=== PATIENT | female | born 1990 | race Caucasian/White ===

== ENCOUNTER 2023-08-07 12:02 | Outpatient (CLI) | payer OTHER, SELFPAY ==
--- NOTE | ~2023-08-07 | XR_ITS ---
EXAMINATION: XR chest 2V 08/07/2023 12:35 INDICATION: Midsternal chest pain and shortness of breath PROCEDURE: 2 view chest COMPARISON: No prior studies for comparison. FINDINGS: The lungs are clear. The cardiomediastinal silhouette is within normal limits. There are no pleural effusions. There is no pneumothorax suspected. IMPRESSION: 1: NO ACUTE CARDIOPULMONARY DISEASE. Reviewed, dictated and finalized at location L.
[2023-08-07 12:24] LABS: Basophils Absolute Auto 0.04 K/mm3 (0.00-0.10); Basophils Percent Auto 0.7 % (0.0-1.0); Eosinophils Absolute Auto 0.25 K/mm3 (0.02-0.50); Eosinophils Percent Auto 4.4 % (1.0-6.0); Hematocrit 39.8 % (35.0-49.0); Hemoglobin 13.6 g/dL (12.0-15.0); Immature Granulocyte Absolute 0.01 K/mm3 (0.00-0.00); Immature Granulocyte Percent A 0.2 % (0.0-0.0); Lymphocytes Absolute Auto 1.72 K/mm3 (1.10-4.50); Lymphocytes Percent Auto 30.4 % (18.0-42.0); Mean Corpuscular HGB Conc 34.2 g/dL (32.0-36.0); Mean Corpuscular Hemoglobin 30.1 pg (27.0-31.0); Mean Corpuscular Volume 88.1 fL (78.0-102.0); Mean Platelet Volume 10.4 fl (9.2-11.8); Monocytes Absolute Auto 0.52 K/mm3 (0.10-0.90); Monocytes Percent Auto 9.2 % (2.0-11.0); Neutrophils Absolute Auto 3.1 K/mm3 (1.7-7.2); Neutrophils Percent Auto 55.1 % (50.0-70.0); Platelet Count Result 199 K/mm3 (150-420); Red Blood Count 4.52 M/mm3 (4.20-5.40); Red Cell Distribution Width 12.2 % (11.6-14.4); White Blood Count 5.7 K/mm3 (4.8-10.8)
[2023-08-07 12:39] LABS: D Dimer 0.19 mg/L (0.19-0.50)
[2023-08-07 12:50] LABS: Alanine Aminotransferase 19 U/L (14-59); Albumin Level 3.9 g/dL (3.4-5.0); Alkaline Phosphatase 54 U/L (46-116); Anion Gap 9 mmol/L (8-16); Aspartate Amino Transferase 14 U/L (15-37); Bilirubin,Total 0.6 mg/dL (0.00-1.00); Blood Urea Nitrogen 8 mg/dL (7-18); Calcium 9.1 mg/dL (8.5-10.1); Carbon Dioxide 27 mmol/L (21-32); Chloride 104 mmol/L (98-108); Creatine Kinase 96 U/L (26-192); Estimated Glomerular Filt Rate > 60; Glucose 89 mg/dL (70-99); Osmolality Calculated 287 mOsm/kg (285-295); Potassium 3.6 mmol/L (3.5-5.1); Sodium 140 mmol/L (136-145); Thyroid Stimulating Hormone 1.08 uIU/mL (0.36-3.74); Troponin I 4.2 ng/L (0.00-60.4)
[2023-08-07 12:54] LABS: CRP < 0.5 mg/dL (0.0-0.9)
[2023-08-07 13:12] LABS: Rheumatoid Factor Screen Negative (Negative)
[2023-08-10 13:35] LABS: Anti Nuclear Antibody Pattern Nuclear, Speckled
== END 2023-08-07 12:03 | disposition home or self-care (01) ==
LOC: CHSLAB 12:08
PROVIDERS: PCP Internal Medicine; Visit Provider Nurse Practitioner Family
DX: R06.02 Shortness of breath (principal); R07.9 Chest pain, unspecified; M79.606 Pain in leg, unspecified
CPT/HCPCS: 36415; 71046; 80053; 82550; 82553; 83735; 84439; 84443; 84484; 85025; 85380; 86038; 86039; 86140; 86430

== ENCOUNTER 2023-09-03 10:08 | Outpatient (CLI) | payer OTHER, SELFPAY ==
--- NOTE | 2023-09-03 10:20 | ECHO_ITS ---
Patient Info Name: Narcisa Olson Age: 32 years : 1990 Gender: Female Ht: 65 in Wt: 120 lbs BSA: 1.58 m2 HR: 72 bpm BP: 132 / 95 mmHg Heart Rhythm: Sinus Rhythm Technical Quality: Good Exam Date: 09/03/2023 11:21 AM Exam Location: Echo Lab Patient Status: Outpatient Admit Date: 09/03/2023 Staff Ordering Physician: Rosio, Tamiko Dave NP Cable Armorer Operator: Marry Turner RDCS Attending Provider: MilagrosTamiko NP Referring Physician: Rosio REED; Exam Type: CA echo doppler color flow Study Info Indications - Abn EKG, chest pain Complete two-dimensional, color flow and Doppler transthoracic echocardiogram is performed. Summary 1. Complete two-dimensional, color flow and Doppler transthoracic echocardiogram is performed. 2. Left ventricular chamber dimension is normal. 3. Left ventricular systolic function is normal, estimated at 60-65%. 4. The left ventricular diastolic function is normal. 5. E/e' 6 is not elevated. 6. There is trace tricuspid valve regurgitation. 7. No pulmonary hypertension, estimated pulmonary arterial systolic pressure is 10 mmHg. Left Ventricle E/e' 6 is not elevated. Left ventricular chamber dimension is normal. Left ventricular systolic function is normal, estimated at 60-65%. The left ventricular diastolic function is normal. Right Ventricle Right ventricular systolic function is normal and with normal TAPSE 3.0 cm. Right ventricular chamber dimension is normal. Left Atria Left atrial chamber dimension is normal. Right Atria Right atrial chamber dimension is normal. Aortic Valve The aortic valve is trileaflet. There is no aortic valve stenosis. There is no aortic valve regurgitation. Pulmonic Valve There is no pulmonic regurgitation. Mitral Valve There is no mitral valve stenosis. There is no mitral valve regurgitation. Tricuspid Valve There is trace tricuspid valve regurgitation. No pulmonary hypertension, estimated pulmonary arterial systolic pressure is 10 mmHg. Pericardium/Pleural There is no pericardial effusion. Inferior Vena Cava Normal inferior vena cava with >50% collapse upon inspiration consistent with normal right atrial pressure, 5 mmHg. Aorta The aortic root size at the sinus of Valsalva is normal. Left Ventricular Outflow Tract Name Value Normal LVOT 2D LVOT Diameter 1.7 cm LVOT Doppler LVOT Peak Velocity 95 cm/s LVOT Peak Gradient 4 mmHg LVOT Mean Gradient 2 mmHg LVOT VTI 19 cm LVOT VTI/AV VTI Ratio 0.8 LVOT Stroke Volume 45 ml Pulmonic Valve Name Value Normal RVOT Doppler RVOT Peak Gradient 1 mmHg PV Doppler PV Peak Velocity 88 cm/s PV Peak Gradient
[2023-09-03 11:16] LABS: Cholesterol 120 mg/dL (0-200); HDL Direct 73 mg/dL (40-60); LDL Cholesterol Calculated 39 mg/dL (<130); Triglycerides 39 mg/dL (0-150)
== END 2023-09-03 10:09 | disposition home or self-care (01) ==
PROVIDERS: PCP Internal Medicine; Visit Provider Nurse Practitioner Family
DX: Z00.00 Encounter for general adult medical examination without abnormal findings (principal); R94.31 Abnormal electrocardiogram [ECG] [EKG]; R07.9 Chest pain, unspecified
CPT/HCPCS: 36415; 80061; 93306

== ENCOUNTER 2023-09-13 00:50 | Emergency (ER) | payer OTHER, SELFPAY ==
--- NOTE | ~2023-09-13 | XR_ITS ---
Left foot Technique: AP, oblique, and lateral views were obtained. Clinical History: Great toe injury Findings: There is a minimally displaced fracture of the distal phalanx of the great toe, probably mi ldly comminuted. No intra-articular extension. Joint spaces are preserved without erosive or degenera tive change. Soft tissues are unremarkable. Impression: Minimally displaced, probable comminuted fracture of the distal phalanx of the great toe. Reviewed, dictated and finalized at location M. A ARTS PROFESSOR Impression: Minimally displaced, probable comminuted fracture of the distal phalanx of the great toe.
[2023-09-13 00:57] VITALS: BP 146/102; PULSE 100; RESP 20; TEMP 36.6; O2SAT 97
--- NOTE | 2023-09-13 01:00 | ED.LOWEXIN ---
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 -- left big toenail avulsion -- 2 cm laceration on the top of the big toe proximal to nail fold. -- profuse bleeding No other injuries noted. MD complaint: foot injury Onset (ago): hour(s) ( 1 hour ago) Injury: Left: foot Type of Injury: blunt Place: home Severity: severe Relieving factors: nothing Exacerbating factors: nothing Context: direct blow Other symptoms: none Related Data Allergies Allergy/AdvReac Type Severity Reaction Status Date / Time CONTROL PATCH Allergy Uncoded 02/03/12 15:10 Review of Systems Review of Systems: All systems reviewed & are unremarkable except as noted in HPI and below Constitutional: Constitutional: Reports as per HPI and Reports no additional constitutional complaints Eyes: Eyes: Reports as per HPI and Reports no additional eye complaints ENT: Reports system reviewed and no additional complaints, except as documented and Reports as per HPI Cardiovascular: Cardiovascular: Reports as per HPI and Reports no additional cardiovascular complaints Respiratory: Respiratory: Reports as per HPI and Reports no additional respiratory complaints Gastrointestinal: Gastrointestinal: Reports as per HPI and Reports no additional gastrointestinal complaints Genitourinary: Genitourinary: Reports no additional female genitourinary complaints and Reports as per HPI Musculoskeletal: Musculoskeletal: Reports no additional musculoskeletal complaints and Reports as per HPI Integumentary/Breasts: Comments: big toe toenail avulsion which was removed 2 cm laceration on the top of the big toe proximal to the nail fold Neurologic: Reports system reviewed and no additional complaints, except as documented Psychiatric: Psychiatric: Reports no additional psychiatric complaints Endocrine: Endocrine: Reports no additional endocrine complaints Hematologic/Lymphatic: Hematologic/Lymphatic: Reports no additional hematologic/lymphatic complaints Allergic/Immunologic: Allergic/Immunologic: Reports no additional allergic/immunologic complaints Exam Const: Orientation/consciousness: patient oriented x3 Limitations: no limitations HENMT: Head: normal to inspection Ears: external ears normal Face/Nose/Sinus: Normal external nose present Face and sinus: normal facial exam Mouth: Yes Normal oral and palatal mucosa present Throat: posterior oropharynx normal Eyes: Conjunctivae: conjunctivae normal Pupils: Equal, round and reactive pupils present EOM: EOMs intact bilaterally Direct Ophthalmoscopy: no photophobia Neck: Neck: normal visual inspection, no lymphadenopathy and no meningeal signs Chest: Chest palpation & inspection: normal inspection of the chest Resp: Effort & Inspection: normal respiratory effort Auscultation: clear to auscultation bilaterally Cardio: Rate: regular rate Rhythm: regular rhythm GI: GI Palp: Yes Soft to palpation Auscultation: normal bowel sounds : General: Yes no CVA tenderness Back/Spine/Pelvis: Back: no CVA tenderness Skin: Other: Left big toe laceration proximal to the nail fold measuring 2 cm. Deep laceration avulsion of right big toe toenail profuse bleeding from the laceration site distal neurovascular bundle is intact. Neuro: General: patient oriented x3, moves all extremities, no meningeal signs, no focal motor deficits and CN's II-XI intact bilaterally Cranial nerves: Yes Nystagmus not present Speech: normal speech Extrem: General: normal to inspection Other: Left big toe laceration Psych: Mental Status: mental status grossly norm
[2023-09-13] MEDS: IBUPROFEN 600 MG TABLET PO (02:45)
[2023-09-13] MEDS: cefTRIAXone 1 GM VIAL IM (02:46)
[2023-09-13 03:26] VITALS: PULSE 90; RESP 18; O2SAT 98
[2023-09-13 03:32] VITALS: BP 138/85
== END 2023-09-13 03:40 | disposition home or self-care (01) ==
PROVIDERS: Emergency Provider Internal Medicine Critical Care Medicine; PCP Internal Medicine
DX: S92.425B Nondisplaced fracture of distal phalanx of left great toe, initial encounter for open fracture (principal); W22.09XA Striking against other stationary object, initial encounter; Y92.009 Unspecified place in unspecified non-institutional (private) residence as the place of occurrence of the external cause
CPT/HCPCS: 12001; 73630; 96372; 99283; A9270; J0696

== ENCOUNTER 2023-10-01 08:31 | Outpatient (CLI) | payer OTHER, SELFPAY ==
--- NOTE | ~2023-10-01 | XR_ITS ---
XR foot LT min 3V 10/01/2023 08:52 Indication: Follow-up left great toe fracture Procedure: 4 views left foot Comparison: 09/13/2023 Findings: Stable alignment of comminuted extra-articular fracture left first distal phalanx. Mild sof t tissue swelling. No other fracture. Impression: 1: Stable alignment of comminuted extra-articular fracture left first distal phalanx. Reviewed, dictated and finalized at location B. ER MECHANIC Impression: 1: Stable alignment of comminuted extra-articular fracture left first distal ph alanx.
== END 2023-10-01 08:32 | disposition home or self-care (01) ==
LOC: CHSIMG 08:33
PROVIDERS: PCP Internal Medicine; Visit Provider Orthopaedic Surgery
DX: M79.672 Pain in left foot (principal); S92.812A Other fracture of left foot, initial encounter for closed fracture
CPT/HCPCS: 73630

== ENCOUNTER 2023-11-12 08:46 | Outpatient (CLI) | payer OTHER, SELFPAY ==
--- NOTE | ~2023-11-12 | XR_ITS ---
Left foot Technique: AP, oblique, and lateral views were obtained. Clinical History: Pain COMPARISON: 10/01/2023 Findings: There has been partial interval healing of fracture the distal phalanx of the great toe sin ce prior exam. Remaining osseous structures are unremarkable. Soft tissues are unremarkable. Impression: Partial interval healing of fracture the distal phalanx of the great toe since prior exam. Reviewed, dictated and finalized at location . HER FEEDER Impression: Partial interval healing of fracture the distal phalanx of the great toe since prior exam.
== END 2023-11-12 08:47 | disposition home or self-care (01) ==
LOC: CHSIMG 08:49
PROVIDERS: PCP Internal Medicine; Visit Provider Orthopaedic Surgery
DX: S92.812D Other fracture of left foot, subsequent encounter for fracture with routine healing (principal); M79.672 Pain in left foot
CPT/HCPCS: 73630

== ENCOUNTER 2024-01-01 09:57 | Outpatient (CLI) | payer OTHER, SELFPAY ==
--- NOTE | ~2024-01-01 | XR_ITS ---
EXAMINATION: XR chest 2V DATE: 01/01/2024 10:25 INDICATION: Upper respiratory infection, shortness of breath TECHNIQUE: PA and lateral views of the chest are obtained. COMPARISON: 08/07/2023 FINDINGS: The lungs are free of acute opacities. No pleural effusion or pneumothorax. The cardiomedia stinal silhouette is normal. The visualized bones and soft tissues are unremarkable. IMPRESSION: 1. No acute cardiopulmonary abnormality. Reviewed, dictated and finalized at location L. ER
[2024-01-01 10:16] LABS: Basophils Absolute Auto 0.02 K/mm3 (0.00-0.10); Basophils Percent Auto 0.5 % (0.0-1.0); Eosinophils Absolute Auto 0.06 K/mm3 (0.02-0.50); Eosinophils Percent Auto 1.4 % (1.0-6.0); Hematocrit 43.4 % (35.0-49.0); Hemoglobin 14.5 g/dL (12.0-15.0); Immature Granulocyte Absolute 0.01 K/mm3 (0.00-0.00); Immature Granulocyte Percent A 0.2 % (0.0-0.0); Lymphocytes Absolute Auto 0.76 K/mm3 (1.10-4.50); Lymphocytes Percent Auto 18.3 % (18.0-42.0); Mean Corpuscular HGB Conc 33.4 g/dL (32.0-36.0); Mean Corpuscular Hemoglobin 29.1 pg (27.0-31.0); Mean Platelet Volume 10.3 fl (9.2-11.8); Monocytes Absolute Auto 0.47 K/mm3 (0.10-0.90); Monocytes Percent Auto 11.3 % (2.0-11.0); Neutrophils Absolute Auto 2.8 K/mm3 (1.7-7.2); Neutrophils Percent Auto 68.3 % (50.0-70.0); Platelet Count Result 150 K/mm3 (150-420); Red Blood Count 4.99 M/mm3 (4.20-5.40); Red Cell Distribution Width 12.6 % (11.6-14.4); White Blood Count 4.2 K/mm3 (4.8-10.8)
[2024-01-01 10:46] LABS: Strep Group A RT-PCR NOT DETECTED (Negative)
[2024-01-01 10:56] LABS: Influenza A QL RT-PCR Negative (Negative); Influenza B QL RT-PCR Negative (Negative); RSV RNA, RT-PCR Negative (Negative); SARS-CoV-2 RNA PCR Negative (Negative)
[2024-01-01 11:28] LABS: Alanine Aminotransferase 24 U/L (14-59); Alkaline Phosphatase 49 U/L (46-116); Anion Gap 11 mmol/L (8-16); Aspartate Amino Transferase 18 U/L (15-37); Bilirubin,Total 0.8 mg/dL (0.00-1.00); Blood Urea Nitrogen 4 mg/dL (7-18); Calcium 8.5 mg/dL (8.5-10.1); Carbon Dioxide 27 mmol/L (21-32); Chloride 101 mmol/L (98-108); Estimated Glomerular Filt Rate > 60; Glucose 86 mg/dL (70-99); Osmolality Calculated 283 mOsm/kg (285-295); Sodium 139 mmol/L (136-145)
== END 2024-01-01 09:58 | disposition home or self-care (01) ==
LOC: CHSLAB 09:59
PROVIDERS: PCP Internal Medicine; Visit Provider Internal Medicine
DX: J06.9 Acute upper respiratory infection, unspecified (principal); R06.02 Shortness of breath
CPT/HCPCS: 36415; 71046; 80053; 85025; 87637; 87651

== ENCOUNTER 2024-10-20 15:00 | Outpatient (CLI) | payer OTHER, SELFPAY ==
--- NOTE | ~2024-10-20 | XR_ITS ---
EXAMINATION: XR chest 2V Exam Date/Time: 10/20/2024 15:18 MULE OPERATOR HISTORY: URI Comparison: 01/01/2024. RESULT: Lines, tubes, and devices: None. Lungs and pleura: Clear. Cardiomediastinal silhouette: Stable. Other: No acute osseous or upper abdominal finding. IMPRESSION: No acute cardiopulmonary process. Reviewed, dictated and finalized at location K. OPERATOR
[2024-10-20 15:21] LABS: Basophils Absolute Auto 0.05 K/mm3 (0.00-0.10); Basophils Percent Auto 0.9 % (0.0-1.0); Eosinophils Absolute Auto 0.26 K/mm3 (0.02-0.50); Eosinophils Percent Auto 4.7 % (1.0-6.0); Hematocrit 38.7 % (35.0-49.0); Hemoglobin 13.5 g/dL (12.0-15.0); Immature Granulocyte Absolute 0.02 K/mm3 (0.00-0.00); Immature Granulocyte Percent A 0.4 % (0.0-0.0); Lymphocytes Absolute Auto 1.79 K/mm3 (1.10-4.50); Lymphocytes Percent Auto 32.1 % (18.0-42.0); Mean Corpuscular HGB Conc 34.9 g/dL (32-36); Mean Corpuscular Hemoglobin 29.6 pg (27.0-31.0); Mean Corpuscular Volume 84.9 fL (78.0-102.0); Mean Platelet Volume 9.8 fl (9.2-11.8); Monocytes Absolute Auto 0.47 K/mm3 (0.10-0.90); Monocytes Percent Auto 8.4 % (2.0-11.0); Neutrophils Absolute Auto 2.99 K/mm3 (1.70-7.20); Neutrophils Percent Auto 53.5 % (50.0-70.0); Platelet Count Result 203 K/mm3 (150-420); Red Blood Count 4.56 M/mm3 (4.20-5.40); Red Cell Distribution Width 11.9 % (11.6-14.4); White Blood Count 5.6 K/mm3 (4.8-10.8)
[2024-10-20 15:52] LABS: Alanine Aminotransferase 16 U/L (14-59); Albumin Level 3.5 g/dL (3.4-5.0); Alkaline Phosphatase 53 U/L (46-116); Anion Gap 9 mmol/L (4-12); Aspartate Amino Transferase 15 U/L (15-37); Bilirubin,Total 0.6 mg/dL (0.00-1.00); Blood Urea Nitrogen 7 mg/dL (7-18); Calcium 8.9 mg/dL (8.5-10.1); Carbon Dioxide 30 mmol/L (21-32); Chloride 100 mmol/L (98-108); Estimated Glomerular Filt Rate > 60; Glucose 89 mg/dL (70-99); Osmolality Calculated 285 mOsm/kg (285-295); Potassium 4.1 mmol/L (3.5-5.1); Sodium 139 mmol/L (136-145); Total Protein 6.9 g/dL (6.4-8.2)
== END 2024-10-20 15:01 | disposition home or self-care (01) ==
PROVIDERS: PCP Internal Medicine; Visit Provider Internal Medicine
DX: J06.9 Acute upper respiratory infection, unspecified (principal)
CPT/HCPCS: 36415; 71046; 80053; 85025

== ENCOUNTER 2025-06-23 11:42 | Outpatient (CLI) | payer OTHER, SELFPAY ==
--- NOTE | ~2025-06-23 | XR_ITS ---
EXAMINATION: XR ankle RT min 3V, 06/23/2025 11:50 CDT HISTORY: Right ankle injury COMPARISON: No comparisons available. Findings: No acute fracture or malalignment. No significant degenerative changes. Soft tissues unremarkable. Impression: No acute fracture or malalignment. Reviewed, dictated and finalized at location A. Impression: No acute fracture or malalignment.
--- OUTSIDE RECORDS SUMMARY | 2025-06-23 11:57 | XMS_ITS | Encounter Summary ---
Author Organization [facility] Address [address] [place] [address] Care Team Providers Care Project Scheduler Name Role Phone Milli Johnson DO Primary Care Provider [phone] Encounter Details Date Type Department Care Team (Late st Contact Info) Description 05/13/2007 Orders Only [facility] Family Medicine [place] [address] [facility] [address] [place] [address] [place] [address] [place] [address] Social History Tobacco Use Types Packs/Day Years Used Date Smoking Tobacco: Never Assessed Comments Unknown Sex and Gender Information Value Date Recorded Sex Assigned at Not on file 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 CHIEF COMPLAINT: discuss control.mercy HISTORY: Painful periods, worse past several months, usually last 7 days, occur q month, not helpedwith Midol or Motrin, hurts to even get out of bed, mom with h/o painful periods as a teenager. Denies prior or contemplated sexual activity. FDLMP 05/08/07. 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 PHYSICAL EXAM: CONSTITUTIONAL: GENERAL APPEARANCE: Healthy appearing, alert patient, normally nourished, developmentally normal and in no acute distress. MUSCULOSKELETAL EXAM: SPINE/RIBS/PELVIS: No kyphosis, lordosis, full range of motion. Normal stability, strength and tone. ASSESSMENT/PLAN: 626.2-MENORRHAGIA/MENOMETORRHAGIA ASSESSMENT: Also primary dysmenorrhea. Discussed use of OCPs as therapy, in addition to prn NSAIDs. MEDICATIONS: ORTHO TRI-CYCLEN LO ORAL TABLET 0.025 MG PACKS, 1 tab po qd, 1 Dispensed, 12 Fills, status: NEW PRESCRIPTION, 05/13/2007. PATIENT EDUCATION: Risks, benefits, and possible side effects of medication(s) were reviewed with the patient. 724.2-LOW BACK PAIN ASSESSMENT: Discussed low back strengthening exercises for HEP. If fails to improve in 4 weeks, sheor Mom will call for PT referral. RETURN VISIT: Instructed to call if not improving. Electronically Signed by: Milli Johnson MD on Tuesday, May 15, 2007 documented in this encounter Plan of Treatment Not on file documented as of this encounter Visit Diagnoses Not on filedocumented in this encounter Care Teams Project Scheduler Relationship Specialty [place] [address] [facility] [address] [place] [id number] PCP - General 07/12/06 documented as of this encounter
--- OUTSIDE RECORDS SUMMARY | 2025-06-23 11:57 | XMS_ITS | Encounter Summary ---
Author Organization [facility] Address [address] [place] [address] Care Team Providers Care Manager Brand Name Role Phone Milli Johnson DO Primary Care Provider [phone] Encounter Details Date Type Department Care Team (Late st Contact Info) Description 07/24/2006 Outpatient Historical [facility] Family Medicine [place] [address] [place] [address] [place] [address] [place] [address] Social History Tobacco Use Types Packs/Day Years Used Date Smoking Tobacco: Never Assessed Comments Unknown Sex and Gender Information Value Date Recorded Sex Assigned at Not on file Legal Sex Female 2:[address] Gender Identity Not on file Sexual Orientation Not on file documented as of this encounter Last Filed Vital Signs Vital Sign Reading Time Taken Comments Blood Pressure - - Pulse - - Temperature 37.1 C (98.7 F) 07/24/2006 10:00 AM CDT Respiratory Rate - - Oxygen Saturation - - Inhaled Oxygen Concentration - - Weight 54.9 kg (121 lb) 07/24/2006 10:00 AM CDT Height - - Body Mass Index - - documented in this encounter Plan of Treatment Not on file documented as of this encounter Visit Diagnoses Not on filedocumented in this encounter Care Teams Manager Brand Relationship Specialty Start Date End Date M[place] [id number] [place] [address] [address] [place] [phone] PCP - General 07/12/06 documented as of this encounter
--- OUTSIDE RECORDS SUMMARY | 2025-06-23 11:57 | XMS_ITS | Clinical Summary ---
Author Organization [facility] Address [facility] [place] [address] Care Team Providers Care Signal Apprentice Name Role Phone None, Provider MD Primary Care Provider Unavaila ble Allergies Active Allergy Reactions Criticality Noted Date Comments Tape Rash Low 08/30/2021 Medications folic acid 1 MG tablet Take 3 mg by mouth daily. Active Vit-Fe Fumarate-FA (WESTAB PLUS) 27-1 MG Tab Active Social History Tobacco Use Types Packs/Day Years Used Date Smoking Tobacco: Never Smokeless Tobacco: Never Alcohol Use Standard Drinks/Week Comments Never 0 (1 standard drink = 0.6 oz pur e alcohol) Estimated Date of Delivery Comme nts Yes 02/19/2022 Sex and Gender Information Value Date Recorded Sex Assigned at Not on file Legal Sex Female 12:26 PM CDT Gender Identity Not on file Sexual Orientation Not on file Last Filed Vital Signs Vital Sign Reading Time Taken Comments Blood Pressure 129/83 08/30/2021 12:47 PM CDT Pulse 105 08/30/2021 12:47 PM CDT Temperature 36.9 C (98.5 F) 08/30/2021 12:47 PM CDT Respiratory Rate 18 08/30/2021 12:47 PM CDT Oxygen Saturation 100% 08/30/2021 12:47 PM CDT Inhaled Oxygen Concentration - - Weight 63.5 kg (140 lb) 08/30/2021 12:47 PM CDT Height 165.1 cm (5' 5) 08/30/2021 12:47 PM CDT Body Mass Index 23.3 08/30/2021 12:47 PM CDT Plan of Treatment Health Maintenance Due Date Last Done Comments Cervical Cancer Screening Pa p Smear (Age 30 to 64) Every 3 Years 1991 Annual Physical 1994 Hepatitis C 2009 DTaP, Tdap and Td Vaccines ( 1 - Tdap) 2010 Hepatitis B Vaccines (1 of 3 - 19+ 3-dose series) 2010 HPV Vaccines (1 - 3-dose SCD M series) 2018 Cervical Cancer Screening Pa p with HPV Testing (Age 30 to 64) Every 5 Years 2021 Cervical Cancer Screening with HPV 2021 COVID-19 Vaccine (1 - 2023-2 5 season) 2024 RSV Immunization or 60+ Years (1 - 1-dose 75+ series) 2066 Meningococcal B Vaccine Aged Out No l onger eligible based on patient's age to complete this topic Meningococcal Vaccine Aged Out No devendra cr eligible based on patient's age to complete this topic Pneumococcal Vaccine: Pediat rics (0 to 5 Years) and At-Risk Patients (6 to 49 Years) Aged Out No longer eligible b ased on patient's age to complete this topic RSV Immunizations Under 20 Months Aged Out No longer eligible based on patient's age to complete this topic Insurance [employer] Care Teams Signal Apprentice Relationship Specialty Start Date End Date None, Provider, PCP - General 08/30/21
--- OUTSIDE RECORDS SUMMARY | 2025-06-23 11:57 | XMS_ITS | Encounter Summary ---
Author Organization [facility] Address [address] [place] [address] Care Team Providers Care Motion Picture Actor Name Role Phone Milli Johnson DO Primary Care Provider [phone] Encounter Details Date Type Department Care Team (Late st Contact Info) Description 05/23/2007 Outpatient Historical [facility] Family Medicine [place] [address] [address] [facility] [address] [place] [address] Mariah Douglas MD NO ADDRESS ON FILE Social History Tobacco Use Types Packs/Day Years Used Date Smoking Tobacco: Never Assessed Comments Unknown Sex and Gender Information Value Date Recorded Sex Assigned at Not on file 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 Gender Identity Not on file Sexual Orientation Not on file documented as of this encounter Plan of Treatment Not on file documented as of this encounter Procedures Procedure Name Priority Date/Time Associated Diagnosis Comments CHG MENINGOCOCCAL CONJUG VACCINE IM VFC 05/23/2007 12:00 AM CDT CHG HEPATITIS A VACCINE PED ADOL IM 2 DOSE VFC 05/23/2007 12:00 AM CDT documented in this encounter Visit Diagnoses Not on filedocumented in this encounter Care Teams Motion Picture Actor Relationship Specialty [place] [address] [address] [facility] [address] [place] [address] PCP - General 07/12/06 documented as of this encounter
--- OUTSIDE RECORDS SUMMARY | 2025-06-23 11:57 | XMS_ITS | Encounter Summary ---
Author Organization [facility] Address [address] [place] [address] Care Team Providers Care Sizing End Bander Name Role Phone Milli Johnson DO Primary Care Provider [phone] Encounter Details Date Type Department Care Team (Latest Contact Info) Description 10/16/2008 Outpatient [place] [address] [place] [address] Abdominal Pain, Generalized Social History Tobacco Use Types Packs/Day Years Used Date Smoking Tobacco: Never Alcohol Use Standard Drinks/Week Comments No 0 (1 standard drink = 0.6 oz pur e alcohol) Comments No Sex and Gender Information Value Date Recorded Sex Assigned at Not on file 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
--- OUTSIDE RECORDS SUMMARY | 2025-06-23 11:57 | XMS_ITS | Encounter Summary ---
Author Organization [facility] Address 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
--- OUTSIDE RECORDS SUMMARY | 2025-06-23 11:57 | XMS_ITS | Encounter Summary ---
Author Organization [facility] Address [address] [place] [address] Care Team Providers Care Medicine And Health Service Manager Name Role Phone Milli Johnson DO Primary Care Provider [phone] Encounter Details Date Type Department Care Team (Late st Contact Info) Description 10/23/2007 Outpatient Historical [facility] Family Medicine [place] [address] [place] [address] [place] [address] [place] [address] Social History Tobacco Use Types Packs/Day Years Used Date Smoking Tobacco: Never Assessed Comments Unknown Sex and Gender Information Value Date Recorded Sex Assigned at Not on file 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
--- OUTSIDE RECORDS SUMMARY | 2025-06-23 11:57 | XMS_ITS | Encounter Summary ---
Author Organization [facility] Address 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
--- OUTSIDE RECORDS SUMMARY | 2025-06-23 11:57 | XMS_ITS | Encounter Summary ---
Author Organization [employer] Address 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
--- OUTSIDE RECORDS SUMMARY | 2025-06-23 11:57 | XMS_ITS | Encounter Summary ---
[facility] Organization [facility] Address 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
--- OUTSIDE RECORDS SUMMARY | 2025-06-23 11:57 | XMS_ITS | Encounter Summary ---
Author Organization [facility] Address 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
--- OUTSIDE RECORDS SUMMARY | 2025-06-23 11:57 | XMS_ITS | Encounter Summary ---
Author Organization [facility] Address [address] [place] [address] Care Team Providers Care Philanthropy Officer Name Role Phone Milli Johnson DO Primary Care Provider [phone] Encounter Details Date Type Department Care Team (Late st Contact Info) Description 10/23/2007 Outpatient Historical [facility] Family Medicine [place] [address] [place] [address] [place] [address] [place] [address] Social History Tobacco Use Types Packs/Day Years Used Date Smoking Tobacco: Never Assessed Comments Unknown Sex and Gender Information Value Date Recorded Sex Assigned at Not on file 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
--- OUTSIDE RECORDS SUMMARY | 2025-06-23 11:57 | XMS_ITS | Encounter Summary ---
Author Organization [facility] Address [address] [place] [address] Care Team Providers Care Machine Records Units Supervisor Name Role Phone Milli Johnson DO Primary Care Provider [phone] Encounter Details Date Type Department Care Team (Late st Contact Info) Description 01/31/2007 Outpatient Historical [facility] Family Medicine [place] [address] [place] [address] [place] [address] [place] [address] Social History Tobacco Use Types Packs/Day Years Used Date Smoking Tobacco: Never Assessed Comments Unknown Sex and Gender Information Value Date Recorded Sex Assigned at Not on file 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 Gender Identity Not on file Sexual Orientation Not on file documented as of this encounter Last Filed Vital Signs Vital Sign Reading Time Taken Comments Blood Pressure 112/70 01/31/2007 4:00 PM CDT Pulse 70 01/31/2007 4:00 PM CDT Temperature 36.7 C (98.1 F) 01/31/2007 4:00 PM CDT Respiratory Rate - - Oxygen Saturation - - Inhaled Oxygen Concentration - - Weight 5.443 kg (12 lb) 01/31/2007 4:00 PM CDT Height - - Body Mass Index - - documented in this encounter Plan of Treatment Not on file documented as of this encounter Visit Diagnoses Not on filedocumented in this encounter Care Teams Machine Records Units Supervisor Relationship Specialty [place] [address] [facility] [address] [place] [address] PCP - General 07/12/06 documented as of this encounter
--- OUTSIDE RECORDS SUMMARY | 2025-06-23 11:57 | XMS_ITS | Encounter Summary ---
Author Organization [employer] Address 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
--- OUTSIDE RECORDS SUMMARY | 2025-06-23 11:57 | XMS_ITS | Clinical Summary ---
Author Organization [employer] Address [address] [place] [address] Care Team Providers Care Band Singer Name Role Phone Milli Johnson DO Primary Care Provider [phone] Allergies Active Allergy Reactions Criticality Noted Date Comments Adhesive Rash Medium 09/14/2013 control patch of unknown name. Unclassified Drug Rash Low 09/06/2015 Control patch Medications L.acid/B.bifidum /B.animal/FOS (PROBIOTIC COMPLEX ORAL) Take by mouth. A ctive vit-iron fumarate-fa (JERO ) 28 mg iron- 800 mcg Tablet Take 1 Tablet by mouth daily. Active polymyxin B sulf-trimethopri m (POLYTRIM) 10,000 unit- 1 mg/mL solution Administer 1 Drop in both eyes every 4 hours. 10 mL 3 Active naproxen (NAPROSYN) 500 mg tabletIndication s:Other migraine without status migrainosus, intractable TAKE 1 TABLET BY MOUTH TWICE A DAY WITH MEALS 60 Tablet 3 Active cyclobenzaprine (FLEXERIL) 5 mg Tablet Take 1 Tablet (5 mg) by mouth 3 times daily as needed for Spasm. 12 Tablet 3 Active Active Problems Problem Noted Date Diagnosed Date History of COVID-19 01/31/2022 Intrauterine growth restrict ion affecting antepartum care of mother in third trimester, not applicable or unspecified fetus 01/31/2022 Encounter for induction of labor 01/31/2022 Back pain affecting in third trimester 12/11/2021 2019 novel coronavirus disease (COVID-19) 2020 Onychomycosis 06/07/2018 Tobacco abuse 06/05/2018 Generalized anxiety disorder 09/03/2012 Constipation 03/04/2012 Migraine 12/15/2011 Excessive or frequent menstruation 01/31/2007 Resolved Problems Problem Noted Date Diagnosed Date Resolved Date 04/13/16 04/12/2016 05/25/2016 Cramping -> d/c home 01/22/2016 016 Nausea and vomiting during p regnancy prior to 22 weeks gestation 09/07/2015 05/25/2016 Pelvic pain in female 06/26/20142015 Rash and other nonspecific skin eruption 12/04/2007 09/17/2009 Other specified noninflammat ory disorder of vagina 10/23/2007 01/08/2009 Routine infant or child health check 05/23/2007 12/15/2011 Need for other specified pro phylactic vaccination against single bacterial disease 05/23/2007 01/08/2009 Other specified disease of h air and hair follicles 01/31/2007 01/08/2009 Candidiasis of vulva and vagina 01/31/2007 01/08/2009 Allergic urticaria 07/24/2006 0 Lumbago 07/12/2006 09/17/2009 Major depressive disorder, s lucy episode, unspecified 07/12/2006 12/15/2011 Need for prophylactic vaccin ation and inoculation against viral hepatitis 07/12/200608/30 Nausea vomiting and diarrhea 05/25/2016 Encounters Date Type Department Care Team Description 06/16/2025 External Device Data STL ABSTRACTION Provider, Abstract 06/03/2025 External Device Data [facility] ABSTRACTION Provider, Abstract 06/02/2025 External Device Data ST[facility] ABSTRACTION Provider, Abstract 04/28/2025 External Device Data ST[facility] ABSTRACTION Provider, Abstract from Last 3 Months Immunizations Immunization Administration Dates Next Due (ADACEL/BOOSTRIX)(10 YR UP) TDAP VACCINE, 0.5ML, IM 02/07/2016,04/23/2008 (HAVRIX/VAQTA)(12 MO-18 YRS) HEPATITIS A VACCINE 0.5 ML PED/ADOL 2 DOSE, IM 05/23/2007,07/12/2006 (INFANRIX)(6 WKS-6 YRS) DIPT HERIA, TETANUS TOXOIDS, AND ACCELLULAR PERTUSSIS VACCINE (DTAP), 0.5 ML IM 05/17/1996,07/08/1993,07/10/1992,04/10,01/20/1992 (IPOL)(6 WKS AND UP) POLIOVI ELIZABETH VACCINE, INACTIVATED (IPV), 3 DOSE, SUBCUT OR IM 05/17/1996,07/08/1993,04/10/1992,01/19 (M-M-R II/PRIORIX)(12 MO UP) MEASLES, MUMPS AND RUBELLA VIRUS VACCINE, 0.5 ML IM/SUBCUT 05/17/1996,02/26/1993 (VARIVAX)(12 MOS UP)VARICELL A VIRUS VACCINE (PF) 0.5 ML, SUB CUT 05/16/2002 HPV Vaccine 3 Dose IM VFC 04/08/2010,11/15/2009, 09/16/2009 Hepatitis B Vaccine 11/10/2000,05/12/1997,1995 INFLUENZA VACCINE QUADRIVALE NT 6 MOS UP PF IM 10/03/2019 Meningococcal A Conjugate Vaccine IM 05/23/2007 Family History Medical History Relation Name Comments Healthy Brother 1 Healthy Brother 2 Healthy Father Healthy Mother Breast Cancer Other Ovarian Cancer Other Heart Disease Paternal Grandmother Healthy Sister 1 Healthy Sister 2 Relation Name Status Comments Brother 1 Alive Brother 2 Alive Father Alive Mother Alive Other Paternal Grandmother Sister 1 Alive Sister 2 Alive Social History Tobacco Use Types Packs/Day Years Used Date Smoking Tobacco: Former Cigarettes Q uit: 07/13/2015 Smokeless Tobacco: Never Alcohol Use Standard Drinks/Week Comments Not Currently 0 (1 standard drink = 0.6 oz pur e alcohol) Comments No Sex and Gender Information Value Date Recorded Sex Assigned at Not on file 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 Gender Identity Not on file Sexual Orientation Not on file Last Filed Vital Signs Vital Sign Reading Time Taken Comments Blood Pressure 118/84 11/10/2022 10:02 AM FIRE EXTINGUISHER INSPECTOR Pulse 101 11/10/2022 10:02 AM FIRE EXTINGUISHER INSPECTOR Temperature 36.6 C (97.9 F) 11/10/2022 10:02 AM FIRE EXTINGUISHER INSPECTOR Respiratory Rate 18 02/02/2022 7:59 AM CDT Oxygen Saturation 99% 11/10/2022 10: 02 AM FIRE EXTINGUISHER INSPECTOR Inhaled Oxygen Concentration - - Weight 59.3 kg (130 lb 12.8 oz) 023 10:02 AM FIRE EXTINGUISHER INSPECTOR Height 165.1 cm (5' 5) 11/10/2022 10:0 2 AM FIRE EXTINGUISHER INSPECTOR Body Mass Index 21.77 11/10/2022 10:02 AM FIRE EXTINGUISHER INSPECTOR Plan of Treatment Health Maintenance Due Date Last Done Comments HPV/Cotest (21-29) 06/08/2019 06/08/2014, 09/16/2009 CERVICAL CANCER SCREENING 2021 HPV/Cotest (30-65) 2021 06/08/2014, 09/16/2009 PAP SMEAR 2021 06/08/2014, 09/16/2009 Preventative Visit- Commercial 10/29/2024 1 12/11/2018, 06/05/2018, 02/14/2016, Additional history exists INFLUENZA VACCINE (#1) 2025 10/03/2019 DTAP/TDAP/TD VACCINES (8 - T d or Tdap) 02/06/2026 02/07/2016, 04/23/2008, 05/17/1996, Additional history exists HEPATITIS B VACCINES Completed 11/10/2000, 05/12/1997, 05/17/1996 HPV VACCINES Completed 04/08/2010, 10/29, 09/16/2009 Procedures Procedure Name Priority Date/Time Associated Diagnosis Comments CERV/VAG CYTOPATH, THIN PREP IMAGR RFLX HPV Routine 06/08/2014 11:02 PM CDT Screening for cervical cancer from Last 3 Months or Most Recently Relevant to Health Maintenance Results * CERV/VAG CYTOPATH, THIN PREP IMAGR RFLX HPV (06/08/2014 11:02 PM CDT) LAST MENSTRUAL PERIOD 06/05/14 [facility] PAP INTERP Negative for intraepithelial lesion or malignancy. [facility] [employer] [facility] Comment: Performed by [employer], [address] [place] [address] Registered Respiratory Therapist Pap Comment This Pap test has been evaluated with computer assisted technology. [facility] [employer] [facility] ADEQUACY: Satisfactory for evaluation. Endocervical/trans formation zone component present. [facility] [employer] [facility] CLINICAL INFORMATION Information not provided [facility] LABORATORY SERVICES - [facility] SOURCE Information not provided [facility] LABORATORY SERVICES - [facility] PREV PAP: INFORMATION NOT PROVIDED [facility] LABORATORY SERVICES - [facility] CYTOTECHNOLOGI ST: [place], [place](ASCP) [facility] LABORATORY SERVICES - [facility] PREV BX: INFORMATION NOT PROVIDED [facility]ORATORY SERVICES - [facility] Endocervical 06/08/2014 11:0 2 PM CDT 06/08/2014 11:21 PM CDT Comment:ENDOCERVICAL Bertrand Fernandez MD PATHOLOGY/CYTOLOGY ORDERABLE S Final Result [facility] LABORATORY SERVICES [facility] CLIA# [id number] [address] [place] [address] from Last 3 Months or Most Recently Relevant to Health Maintenance Insurance [facility] [id number] OPEN CHOICE PPO RX [employer] PLANS (INTERNAL) [facility] Internal Plans Advance Directives For more information, please contact: [phone] * Full Code (Latest Code Status on File) Date Activated Date Inactivated Comments 02/01/2022 10:09 AM 02/02/2022 1:27 PM * Full Code Date Activated Date Inactivated Comments 01/30/2022 10:42 AM 02/01/2022 10:09 AM * Full Code Date Activated Date Inactivated Comments 09/01/2021 8:52 AM 09/01/2021 3:40 PM * Full Code Date Activated Date Inactivated Comments 04/13/2016 11:32 AM 04/15/2016 4:46 PM * Full Code Date Activated Date Inactivated Comments 04/12/2016 7:14 AM 04/13/2016 11:32 AM Care Teams Band Singer Relationship Specialty [place] [address] [facility] [address] [place] [address] PCP - General 07/12/06
--- OUTSIDE RECORDS SUMMARY | 2025-06-23 11:57 | XMS_ITS | Clinical Summary ---
Author Organization [facility] [address] [place] [address] Care Team Providers Care Log Inspector Name Role Phone Milli Johnson DO Primary Care Provider [phone] Lata Nelson DO Unavailable [phone] Allergies Active Allergy Reactions Criticality Noted Date Comments Adhesive Rash Medium 09/14/2013 control patch of unknown name. Medications No known medications Active Problems Problem Noted Date Diagnosed Date Family history of spina bifida 08/23/2021 Encounters Date Type Department Care Team Description 04/06/2025 3:15 PM CDT Office Visit [facility] [address] [place] [address] Lata Nelson DO Routine gynecological examination (Primary Dx); Hormone imbalance; Vitamin D deficiency from Last 3 Months Surgical History Surgery Date Site/Laterality Comments NO PAST SURGERIES Medical History Medical History Date Comments History of abnormal cervical Pap smear 09/2015 ASCUS +HrHPV neg Family History Medical History Relation Name Comments Spina bifida Father Spina bifida Father's Sister Edwina Breast cancer Maternal Grandmother Ovarian cancer Maternal Grandmother Hypertension Mother Relation Name Status Comments Father Alive Father's Sister Edwina Alive Maternal Grandmother Mother Alive Social History Tobacco Use Types Packs/Day Years Used Date Smoking Tobacco: Former Cigarettes Passive Smoke Exposure: Past Smokeless Tobacco: Never Comments No Sex and Gender Information Value Date Recorded Sex Assigned at Not on file Legal 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 Gender Identity Female 08/25/2021 11:08 AM CDT Sexual Orientation Straight 08/25/2021 11 :08 AM CDT Obstetrics History Para Term AB IAB SAB Ectopic Multiple Livin g Live Births 2 2 2 2 2 Date Outcome GA Total Labor Labor/2nd/3rd Weight Sex Type Anes PTL Jill A1 A5 Name Clin 2015 Term 41w 4d 14h 00m/2h 21m/ 3.714 kg (8 lb 3 oz) F Vag-S pont Epidur al N Livin g 5 8 Maegan Squires lashell Senci boy, D Complications:Positive GBS t est,Meconium staining Delivery Location:[facility] Comments:No observed a nomalies 2021 Term 37w 2d 4h 21m 3h 11m/1h 04m/0h 06m 2.53 kg (5 lb 9.2 oz) M Vag-S pont Livin g 7 8 WIESEM AN,BOY 1STEPH MAGDALENA Lata Senci boy DO Complications: Intolera nce Delivery Location:[facility] ([facility]LO LABOR ) Last Filed Vital Signs Vital Sign Reading Time Taken Comments Blood Pressure 132/89 04/06/2025 3:12 PM CDT Pulse 84 02/26/2025 6:37 PM CDT Temperature 36.7 C (98.1 F) 02/26/2025 6:37 PM CDT Respiratory Rate 16 02/26/2025 6:37 PM CDT Oxygen Saturation 99% 02/26/2025 6:37 PM CDT Inhaled Oxygen Concentration - - Weight 64.9 kg (143 lb) 04/06/2025 3:12 PM CDT Height 165.1 cm (5' 5) 04/06/2025 3:12 PM CDT Body Mass Index 23.8 04/06/2025 3:12 PM CDT Plan of Treatment Health Maintenance Due Date Last Done Comments Depression Screening 1991 Varicella Vaccines (2 of 2 - 2-dose childhood series) 08/08/2002 05/16/2002 Influenza Vaccine (#1) 2025 10/03/2019, 2014 Cervical Cancer Screening 04/06/20262024, 06/20/2023, 08/29/2021 Regular Well Visit/Exam 18-64 04/06/2026 04/06/2025, 06/20/2023 DTaP/Tdap/Td Vaccine (10 - Td or Tdap) 01/25/2032 01/24/2022, 02/07/2016, 01/25/2016, Additional history exists Hepatitis B Screening Completed 11/10/2000 , 05/12/1997, 05/17/1996 HPV Vaccines Completed 04/08/2010, 10/29, 09/16/2009 Hepatitis C Screening Completed 08/23/2021 Pneumococcal vaccine <65 Aged Out No longer eligible based on patient's age to complete this topic Procedures Procedure Name Priority Date/Time Associated Diagnosis Comments TESTOSTERONE, TOTAL AND FREE, SERUM Routine 04/15/2025 9:00 AM CDT Hormone imbalance ESTRONE Routine 04/15/2025 9:00 AM CDT Hormone imbalance THYROID FUNCTION CASCADE Routine 04/15/2025 9:00 AM CDT Hormone imbalance ESTRADIOL Routine 04/15/2025 9:00 AM CDT Hormone imbalance FOLLICLE STIMULATING HORMONE Routine 04/15/2025 9:00 AM CDT Hormone imbalance VITAMIN D 25 HYDROXY Routine 04/15/2025 8:58 AM CDT Vitamin D deficiency THINPREP IMAGING PAP AND HPV MRNA E6/E7 REFLEX HPV 16,18/45 Routine 04/06/2025 4:00 PM CDT Routine gynecological examination HEPATITIS C ANTIBODY Routine 08/23/2021 11:40 AM CDT Encounter for supervision of other normal in first trimester from Last 3 Months or Most Recently Relevant to Health Maintenance Results * Thyroid Function Holliday (04/15/2025 9:00 AM CDT) TSH 1.21 mIU/L [facility] Comment: Reference Range > or = 20 Years 0.40-4.50 Ranges First trimester 0.26-2.66 Second trimester 0.55-2.73 Third trimester 0.43-2.91 Blood 04/15/2025 9:00 AM CDT 04/15/2025 9:01 AM CDT Narrative [facility] - 04/22/2025 12:54 AM CDT FASTING:YES FASTING: YES [facility] DO LAB BLOOD ORDERABLES Fi nal Result Performing Organization Address City/[facility] Co de Phone Number [facility] [address] [place] [address] * Estrone (04/15/2025 9:00 AM CDT) [facility] Signature Estrone, lc/ms/ms 42 pg/mL [facility], Comment: Adult Female Reference Ranges for Estrone: Follicular Phase: 10-138 pg/mL Luteal Phase: 16-173 pg/mL Postmenopausal Phase: < or = 65 pg/mL Pediatric Female Reference Ranges for Estrone: Pre-pubertal (1-9 years): < or = 34 pg/mL 10-11 years: < or = 72 pg/mL 12-14 years: < or = 75 pg/mL 15-17 years: < or = 188 pg/mL This test was developed and its analytical performance characteristics have been determined by [facility]. It has not been cleared or approved by the FDA. This assay has been validated pursuant to the CLIA regulations and is used for clinical purposes. Blood 04/15/2025 9:00 AM CDT 04/15/2025 9:01 AM CDT Narrative [facility] - 04/22/2025 12:54 AM CDT FASTING:YES FASTING: YES Lata Nelson DO LAB BLOOD ORDERABLES Fi nal Result [facility], [address] [place] [address] * Estradiol (04/15/2025 9:00 AM CDT) Pathologist [facility] Estradiol 98 pg/mL [facility] Comment: Reference Range Follicular Phase: 19-144 Mid-Cycle: 64-357 Luteal Phase: 56-214 Postmenopausal: < or = 31 Reference range established on post-pubertal patient population. No pre-pubertal reference range established using this assay. For any patients for whom low Estradiol levels are anticipated (e.g. males, pre-pubertal children and hypogonadal/post-menopausal females), the [facility] Estradiol, Ultrasensitive, LCMSMS assay is recommended (order code 59074). Please note: patients being treated with the drug fulvestrant (Faslodex(R)) have demonstrated significant interference in immunoassay methods for estradiol measurement. The cross reactivity could lead to falsely elevated estradiol test results leading to an inappropriate clinical assessment of estrogen status. [facility] order code [id number], Ultrasensitive LC/MS/MS demonstrates negligible cross reactivity with fulvestrant. Blood 04/15/2025 9:00 AM CDT 04/15/2025 9:01 AM CDT Narrative [facility] - 04/22/2025 12:54 AM CDT FASTING:YES FASTING: YES Lata Nelson DO LAB BLOOD ORDERABLES Fi nal Result [facility] [address] [place] [address] * Testosterone, Total and Free, Serum (04/15/2025 9:00 AM CDT) Pathologist [facility] Testosterone 24 2 - 45 ng/dL [facility] Comment: For additional information, please refer to https://education.Disqus.Kapost/faq/MQV254 (This link is being provided for informational/educational purposes only.) (Note) This test was developed and its analytical performance characteristics have been determined by [facility]. It has not been cleared or approved by the FDA. This assay has been validated pursuant to the CLIA regulations and is used for clinical purposes. Testosterone, free 1.4 0.1 - 6.4 pg/mL [facility] Comment: (Note) This test was developed and its analytical performance characteristics have been determined by [facility]. It has not been cleared or approved by the FDA. This assay has been validated pursuant to the CLIA regulations and is used for clinical purposes. [facility] [address] [address],[address] [facility] [address] Hai Moise MD, PhD Sex hormone binding globulin 110 17 - 124 nmol/L [facility] Blood 04/15/2025 9:00 AM CDT 04/15/2025 9:01 AM CDT Narrative [facility] - 04/22/2025 12:54 AM CDT FASTING:YES FASTING: YES Lata Nelson DO LAB BLOOD ORDERABLES Fi nal Result Performing Organization Address City/[facility]/ZIP Co de Phone Number [facility] [address] [place] [address], [address] [place] [address] * Follicle stimulating hormone (04/15/2025 9:00 AM CDT) Pathologist [facility] FSH 6.9 mIU/mL [facility] Comment: Reference Range Follicular Phase 2.5-10.2 Mid-cycle Peak 3.1-17.7 Luteal Phase 1.5- 9.1 Postmenopausal 23.0-116.3 Blood 04/15/2025 9:00 AM CDT 04/15/2025 9:01 AM CDT Narrative [facility] - 04/22/2025 12:54 AM CDT FASTING:YES FASTING: YES Lata Nelson DO LAB BLOOD ORDERABLES Fi nal Result [facility] [address] [place] [address] * Vitamin D 25 hydroxy (04/15/2025 8:58 AM CDT) Pathologist [facility] Vitamin D 25-OH 43 30 - 100 ng/mL [facility] Comment: Vitamin D Status 25-OH Vitamin D: Deficiency: <20 ng/mL Insufficiency: 20 - 29 ng/mL Optimal: > or = 30 ng/mL For 25-OH Vitamin D testing on patients on D2-supplementation and patients for whom quantitation of D2 and D3 fractions is required, the [facility]TM) 25-OH VIT D, (D2,D3), LC/MS/MS is recommended: order code 50343 (patients >2yrs). See Note 1 Note 1 For additional information, please refer to http://education.VIOSO/faq/NKI479 (This link is being provided for informational/ educational purposes only.) Blood 04/15/2025 8:5 8 AM CDT 04/15/2025 8:59 AM CDT Narrative [facility] - 04/16/2025 6:02 AM CDT FASTING:YES FASTING: YES Lata Nelson DO LAB BLOOD ORDERABLES Fi nal Result [facility] [address] [place] [address] * ThinPrep(R) Imaging Pap and HPV mRNA E6/E7 Reflex HPV 16,18/45 (04/06/2025 4:00 PM CDT) CLINICAL INFORMATION: [facility][1] Comment:None given LMP [facility] Comment:NONE GIVEN Previous Pap [facility] Comment:NONE GIVEN Prev. Bx [facility] Comment:NONE GIVEN SOURCE: [facility] Comment:None given Pap, specimen adequacy [facility] Comment: Satisfactory for evaluation. Endocervical/transformation zone component present. Age and/or menstrual status not provided HPV interp [facility] Comment: Cytology Results: Negative for intraepithelial lesion or malignancy. COMMENTS [facility] Comment: This Pap test has been evaluated with computer assisted technology. Lead Printer [facility] Comment: ABC, CT(ASCP) CT screening location: [place] [address] [place] [address] Comment [facility] Comment: EXPLANATORY NOTE: The Pap is a screening test for cervical cancer. It is not a diagnostic test and is subject to false negative and false positive results. It is most reliable when a satisfactory sample, regularly obtained, is submitted with relevant clinical findings and history, and when the Pap result is evaluated along with historic and current clinical information. Human papillomavirus RNA, High Risk E6/E7 Not Detected Not Detected [facility] Comment: Methodology: Outpatient Physical Therapist-Mediated Amplification This assay detects E6/E7 viral messenger RNA (mRNA) from 14 high-risk HPV types (16,18,31,33,35,39,45,51,52,56,58,59,66,68). Cervical sources are required for HPV testing. If a vaginal source from a patient who has had a total hysterectomy with removal of cervix was submitted, please contact the testing laboratory for alternative testing options. For additional information, please refer to http://Travelatus.Iluminage Beauty/faq/XFV298a8 (This link if provided for information/ educational purposes only.) Swab 04/06/2025 4:00 PM CDT 04/07/2025 7:44 PM CDT us Lata Nelson DO LAB CYTOLOGY ORDERABLES Final Result [facility] [address] [place] [address] [address] * Hepatitis C antibody (08/23/2021 11:40 AM CDT) Hep C Ab NON-REACTI VE NON-REACT HASEEB [facility] SIGNAL TO CUT-OFF 0.01 <1.00 [facility] Comment: HCV antibody was non-reactive. There is no laboratory evidence of HCV infection. In most cases, no further action is required. However, if recent HCV exposure is suspected, a test for HCV RNA (test code 48091) is suggested. For additional information please refer to http://Travelatus.Iluminage Beauty/faq/USU28u4 (This link is being provided for informational/ educational purposes only.) Blood specimen (specimen) 08/23/2021 11:40 AM CDT 08/23/2021 11:42 AM CDT [facility]END[facility] LAB MICROBIOLOGY - GENERAL OR DERABLES Final Result [facility] [address] [place] [address] from Last 3 Months or Most Recently Relevant to Health Maintenance Insurance [facility] CMR Care Teams Log Inspector Relationship Specialty [place] [address] [id number] PCP - General Family Medicine 05/24/21 [place] [address] [place] [address] Consulting Physician Obstetrics and Gynecology 05/24/21
--- OUTSIDE RECORDS SUMMARY | 2025-06-23 11:57 | XMS_ITS | Encounter Summary ---
Author Organization [facility] Address [address] [place] [address] Care Team Providers Care Territory Sales Executive Name Role Phone Milli Johnson DO Primary Care Provider [phone] Encounter Details Date Type Department Care Team (Late st Contact Info) Description 08/16/[address] 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
--- OUTSIDE RECORDS SUMMARY | 2025-06-23 11:57 | XMS_ITS | Encounter Summary ---
Author Organization [employer] Address [address] [place] [address] Care Team Providers Care Hosiery Pairer Name Role Phone Milli Johnson DO Primary Care Provider [phone] Encounter Details Date Type Department Care Team (Late st Contact Info) Description 10/30/2005 Emergency [facility] Ashish Hill MD [address] [place] [address] [place] [address] Er, Authorized P NO ADDRESS ON FILE IMPETIGO (Primary Dx) Social History Tobacco Use Types Packs/Day Years Used Date Smoking Tobacco: Never Assessed Comments Unknown Sex and Gender Information Value Date Recorded Sex Assigned at Not on file 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
--- OUTSIDE RECORDS SUMMARY | 2025-06-23 11:57 | XMS_ITS | Encounter Summary ---
Author Organization [facility] Address [address] [place] [address] Care Team Providers Care Explosive Expert Name Role Phone Milli Johnson DO Primary Care Provider [phone] Encounter Details Date Type Department Care Team (Late st Contact Info) Description 07/12/2006 Outpatient Historical [facility] Family Medicine [place] [address] [place] [address] [place] [address] [place] [address] Social History Tobacco Use Types Packs/Day Years Used Date Smoking Tobacco: Never Assessed Comments Unknown Sex and Gender Information Value Date Recorded Sex Assigned at Not on file 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 Gender Identity Not on file Sexual Orientation Not on file documented as of this encounter Last Filed Vital Signs Vital Sign Reading Time Taken Comments Blood Pressure 118/80 07/12/2006 2:00 PM CDT Pulse 84 07/12/2006 2:00 PM CDT Temperature - - Respiratory Rate - - Oxygen Saturation - - Inhaled Oxygen Concentration - - Weight 54.4 kg (120 lb) 07/12/2006 2:00 PM CDT Height 162.6 cm (5' 4) 07/12/2006 2:00 PM CDT Body Mass Index 20.6 07/12/2006 2:00 PM CDT Body Mass Index Percentile 61.10% 07/12/2006 2:0 0 PM CDT Growth Chart: CDC (Girls, 2- 20 Years) documented in this encounter Plan of Treatment Not on file documented as of this encounter Procedures Procedure Name Priority Date/Time Associated Diagnosis Comments CHG HEPATITIS A VACCINE PED ADOL IM 2 DOSE VFC 07/12/2006 12:00 AM CDT documented in this encounter Visit Diagnoses Not on filedocumented in this encounter Care Teams Explosive Expert Relationship Specialty [place] [address] [address] PCP - General 07/12/06 documented as of this encounter
--- OUTSIDE RECORDS SUMMARY | 2025-06-23 11:57 | XMS_ITS | Encounter Summary ---
Author Organization [facility] Address [address] [place] [address] Care Team Providers Care Utility Agent Name Role Phone Milli Johnson DO Primary Care Provider [phone] Encounter Details Date Type Department Care Team (Late st Contact Info) Description 09/23/2007 Orders Only [facility] Family Medicine [address] [place] [address] [place] [address] [place] [address] Social History Tobacco Use Types Packs/Day Years Used Date Smoking Tobacco: Never Assessed Comments Unknown Sex and Gender Information Value Date Recorded Sex Assigned at Not on file 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
--- OUTSIDE RECORDS SUMMARY | 2025-06-23 11:57 | XMS_ITS | Encounter Summary ---
Author Organization [facility] Address [address] [place] [address] Care Team Providers Care Air Defense Artillery Senior Sergeant Name Role Phone Milli Johnson DO Primary Care Provider [phone] Encounter Details Date Type Department Care Team (Late st Contact Info) Description 05/23/2007 Outpatient Historical [facility] Family Medicine [address] [place] [address] Mariah Douglas MD NO ADDRESS ON FILE Social History Tobacco Use Types Packs/Day Years Used Date Smoking Tobacco: Never Assessed Comments Unknown Sex and Gender Information Value Date Recorded Sex Assigned at Not on file 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
--- OUTSIDE RECORDS SUMMARY | 2025-06-23 11:57 | XMS_ITS | Encounter Summary ---
Author Organization [facility] Address [address] [place] [address] Care Team Providers Care Industrial Furnace Fabricator Name Role Phone Milli Johnson DO Primary Care Provider [phone] Encounter Details Date Type Department Care Team (Late st Contact Info) Description 05/13/2007 Outpatient Historical [facility] Family Medicine [place] [address] [place] [address] [place] [address] [place] [address] Social History Tobacco Use Types Packs/Day Years Used Date Smoking Tobacco: Never Assessed Comments Unknown Sex and Gender Information Value Date Recorded Sex Assigned at Not on file 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 Gender Identity Not on file Sexual Orientation Not on file documented as of this encounter Last Filed Vital Signs Vital Sign Reading Time Taken Comments Blood Pressure 124/76 05/13/2007 10:15 AM CDT Pulse 76 05/13/2007 10:15 AM CDT Temperature - - Respiratory Rate - - Oxygen Saturation - - Inhaled Oxygen Concentration - - Weight 58.5 kg (129 lb) 05/13/2007 10:15 AM CDT Height - - Body Mass Index - - documented in this encounter Plan of Treatment Not on file documented as of this encounter Visit Diagnoses Not on filedocumented in this encounter Care Teams Industrial Furnace Fabricator Relationship Specialty [place] [address] [address] [facility] [address] [place] [address] PCP - General 07/12/06 documented as of this encounter
--- OUTSIDE RECORDS SUMMARY | 2025-06-23 11:57 | XMS_ITS | Clinical Summary ---
Author Organization [facility] Address [address] [place] [address] Care Team Providers Care Blood Bank Calendar Control Clerk Name Role Phone Milli Johnson DO Primary Care Provider [phone] Source Comments [facility],non-owned Affiliates and Associated Physician Practices is amultiple site organization consisting of ambulatory clinics and hospital sitesin [place], [place], [place] and [place]. This disclosure is being madepursuant to the Care Everywhere program and may not contain all information available regarding this patient. Last updated 18.[facility] Allergies Active Allergy Reactions Criticality Noted Date Comments Other-See Past Updates 09/14/2013 control patch of unknown name. Medications * Be aware that medications may not be up to date on this document. Alwaysverify current medications with the patient. FOLIC ACID PO Take by mouth once daily Active Docosahexaenoic Acid ( DHA PO) Take by mouth once daily Active Social History Tobacco Use Types Packs/Day Years Used Date Smoking Tobacco: Former Cigarettes 1 7 Smokeless Tobacco: Never Comments:Quit smoking cigare ttes Jun 2015 Alcohol Use Standard Drinks/Week Comments No 0 (1 standard drink = 0.6 oz pur e alcohol) Estimated Date of Delivery Comme nts Yes 04/02/2016 Sex and Gender Information Value Date Recorded Sex Assigned at Female 07/12/2022 4:08 PM CDT Legal Sex Female 5:52 AM LITIGATION SUPPORT ANALYST Gender Identity Female 07/12/2022 4:08 PM CDT Sexual Orientation Straight 07/12/2022 4: 08 PM CDT Last Filed Vital Signs Vital Sign Reading Time Taken Comments Blood Pressure 127/71 11/30/2015 9:55 AM LITIGATION SUPPORT ANALYST Pulse 87 11/30/2015 9:55 AM LITIGATION SUPPORT ANALYST Temperature 36.9 C (98.5 F) 11/30/2015 9:55 AM LITIGATION SUPPORT ANALYST Respiratory Rate 18 11/30/2015 9:55 AM LITIGATION SUPPORT ANALYST Oxygen Saturation 100% 11/30/2015 9:55 AM LITIGATION SUPPORT ANALYST Inhaled Oxygen Concentration - - Weight 66.6 kg (146 lb 12.8 oz) 11/30/2015 9:55 AM LITIGATION SUPPORT ANALYST Height 162.6 cm (5' 4) 11/30/2015 9:55 AM LITIGATION SUPPORT ANALYST Body Mass Index 25.2 11/30/2015 9:55 AM LITIGATION SUPPORT ANALYST Plan of Treatment Health Maintenance Due Date Last Done Comments HIV SCREENING 2006 DTAP/TDAP/TD VACCINES (1 - Tdap) 2010 HEPATITIS B VACCINE (1 of 3 - 19+ 3-dose series) 2010 HPV VACCINE (1 - 3-dose SCDM series) 2018 COVID-19 VACCINE (1 - 2023-2 5 season) 2024 DEPRESSION SCREENING 10/29/2024 INFLUENZA VACCINE (#1) 2025 ZOSTER VACCINE (1 of 2) 2041 Respiratory Syncytial Virus (RSV) Vaccine Pt: or over 60 yrs (1 - 1-dose 75+ series) 2066 HEPATITIS C SCREENING Completed 04/12/2016 HIB VACCINE Aged Out No longer eligi ble based on patient's age to complete this topic MENINGOCOCCAL (Group B) VACC INE SHARED DECISION-MAKING Aged Out No longer eligibl e based on patient's age to complete this topic MENINGOCOCCAL GROUPS A/C/Y/W VACCINE Aged Out No longer eligible b ased on patient's age to complete this topic PNEUMOCOCCAL VACCINE Aged Out No long er eligible based on patient's age to complete this topic Insurance [facility] Care Teams Blood Bank Calendar Control Clerk Relationship Specialty [place] [address] [facility] [address] [place] [address] PCP - General 02/17/12
--- OUTSIDE RECORDS SUMMARY | 2025-06-23 11:57 | XMS_ITS | Encounter Summary ---
Author Organization [facility] Address 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
--- OUTSIDE RECORDS SUMMARY | 2025-06-23 11:57 | XMS_ITS | Encounter Summary ---
Author Organization [facility] Address [address] [place] [address] Care Team Providers Care Construction Sales Manager Name Role Phone Milli Johnson DO Primary Care Provider [phone] Encounter Details Date Type Department Care Team (Late st Contact Info) Description 05/14/1999 Outpatient Historical [facility] Ashish Rajput DO NO ADDRESS ON FILE Volume depletion (Primary Dx) Social History Tobacco Use Types Packs/Day Years Used Date Smoking Tobacco: Never Assessed Comments Unknown Sex and Gender Information Value Date Recorded Sex Assigned at Not on file Legal Sex Female 2:53 AM NURSE EDUCATOR Gender Identity Not on file Sexual Orientation Not on file documented as of this encounter Plan of Treatment Not on file documented as of this encounter Visit Diagnoses Diagnosis Volume depletion- Primary documented in this encounter Care Teams Construction Sales Manager Relationship Specialty [place] [address] [facility] [address] [place] [address] PCP - General 07/12/06 documented as of this encounter
--- OUTSIDE RECORDS SUMMARY | 2025-06-23 11:57 | XMS_ITS | Encounter Summary ---
Author Organization [facility] Address [address] [place] [address] Care Team Providers Care Rn Telehealth Name Role Phone Milli Johnson DO Primary Care Provider [phone] Encounter Details Date Type Department Care Team (Late st Contact Info) Description 12/04/[address] 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
--- OUTSIDE RECORDS SUMMARY | 2025-06-23 11:57 | XMS_ITS | Encounter Summary ---
Author Organization [facility] Address 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 [address] [place] [address] PCP - General 07/12/06 documented as of this encounter
--- OUTSIDE RECORDS SUMMARY | 2025-06-23 11:58 | XMS_ITS | Encounter Summary ---
Author Organization [facility] Address [address] [place] [address] Care Team Providers Care Proprietary Trader Name Role Phone Milli Johnson DO Primary Care Provider [phone] Encounter Details Date Type Department Care Team (Late st Contact Info) Description 12/04/2007 Outpatient Historical [facility] Family Medicine Kandace Axel [address] [place] [address] [place] [address] [place] [address] Social History Tobacco Use Types Packs/Day Years Used Date Smoking Tobacco: Never Assessed Comments Unknown Sex and Gender Information Value Date Recorded Sex Assigned at Not on file Legal Sex Female 2:53 AM PAN PULLER Gender Identity Not on file Sexual Orientation Not on file documented as of this encounter Plan of Treatment Not on file documented as of this encounter Visit Diagnoses Not on filedocumented in this encounter Care Teams Proprietary Trader Relationship Specialty [place] [address] [place] [address] PCP - General 07/12/06 documented as of this encounter
--- OUTSIDE RECORDS SUMMARY | 2025-06-23 11:58 | XMS_ITS | Encounter Summary ---
Author Organization [facility] Address [address] [place] [address] Care Team Providers Care Cardiology Nurse Name Role Phone Milli Johnson DO Primary Care Provider [phone] Encounter Details Date Type Department Care Team (Late st Contact Info) Description 12/04/2007 Orders Only [facility] Family Medicine [facility] [address] [facility] [address] [place] [address] Narcisa Veloz MD [address] [place] [address] Social History Tobacco Use Types Packs/Day Years Used Date Smoking Tobacco: Never Assessed Comments Unknown Sex and Gender Information Value Date Recorded Sex Assigned at Not on file Legal Sex Female 2:53 AM DIRECTOR OF TEACHER EDUCATION Gender Identity Not on file Sexual Orientation Not on file documented as of this encounter Progress Notes * Narcisa Veloz MD - 03/11/2008 11:22 AM CDT NURSE NAME: William Linette, A PATIENT'S AGE: 17 yrs, 0 mths, 1 wk, 6 days VITALS: TEMP: 97??f Oral WEIGHT: 132lbs ACCOMPANIED BY: Father. ALLERGIES: No known drug allergies. CHIEF COMPLAINT: The child is here for evaluation of a rash.started on stomach, moved to legs, now on hands/itchy and red.est.mercy HISTORY: HPI: PT is here for rash. Pt states rash started one and half weeks ago. PT states that it started on her stomach and was on her arms and legs. Pt reports that now only on her hands. Pt has had similar rash in the past after being exposed to dust from house renovation. Pt states that she is sensitive to bleach. The rash is itchy. PT denies any new lotions or soaps. Pt also reports she has a cyst in her vaginal area that is itching and she had been seen for. Pt states she was not using the creamshe was told to use and wonders if it can be cut out. REVIEW OF SYSTEMS: GENERAL: Appears to have normal activity, no change in appetite, no fever, normal fluid intake, sleeps well. : See HPI. SKIN/BREAST/CHEST: See HISTORY OF PRESENT ILLNESS. PHYSICAL EXAM: CONSTITUTIONAL: GENERAL APPEARANCE: Healthy appearing, alert patient, normally nourished, developmentally normal and in no acute distress. EYES: CONJUNCTIVA/LIDS: Conjunctivae and lids appear normal. SKIN: RASH: DESCRIPTION: The rash is patchy, pruritic. Rash is red. LOCATION: Palmar aspect of the left wrist, palmar aspect of the right wrist. ASSESSMENT/PLAN: 623.8-NONINFLAMMATORY DISORDERS OF VAGINA ASSESSMENT: Pt told to follow instructions given by DR Johnson to use HC cream. If no improvement withusing cream will be seen for evaluation for possible removal. 782.1-RASH ASSESSMENT: Faint. Pt has been taking benadryl at night. Pt will be aware of new lotions, soaps. Ptadvised to use dove. Most likely allergic in nature. Will start claritin. If no improvement call. RETURN VISIT: Return as above. 12/06/07 08:31 p Electronically signed by Narcisa Veloz MD. TEACHING PHYSICIAN COMMENTS: I have reviewed the resident's note and I agree with the resident's evaluation and plan.lisal Electronically Signed by: Abram Bazan MD on Saturday, December 15, 2007 documented in this encounter Plan of Treatment Not on file documented as of this encounter Visit Diagnoses Not on filedocumented in this encounter Care Teams Cardiology Nurse Relationship Specialty [place] [address] [facility] [address] [place] [address] PCP - General 07/12/06 documented as of this encounter
== END 2025-06-23 11:43 | disposition home or self-care (01) ==
LOC: CHSIMG 11:44
PROVIDERS: PCP Internal Medicine; Visit Provider Internal Medicine
DX: S99.911A Unspecified injury of right ankle, initial encounter (principal)
CPT/HCPCS: 73610

== ENCOUNTER 2025-07-25 09:01 | Outpatient (CLI) | payer OTHER, SELFPAY ==
--- NOTE | ~2025-07-25 | MR_ITS ---
EXAMINATION: MR ankle RT wo con DATE: 07/25/2025 10:14 INDICATION: Posterior right ankle pain TECHNIQUE: Magnetic resonance imaging (MRI) of the right ankle was performed without intravenous contrast. Sequences included sagittal, coronal, and axial proton-density weighted fast spin echo without and with fat saturation. COMPARISON: None. FINDINGS: Medial ankle ligaments: Deep and superficial deltoid ligaments as well as the spring ligament are normal. Lateral ankle ligaments: The anterior and posterior inferior tibiofibular ligaments are normal. The anterior talofibular, calcaneofibular and posterior talofibular ligaments are normal. Tendons: Achilles tendon is normal. The peroneus longus and brevis tendons are normal. The tibialis anterior and extensor hallucis longus and extensor digitorum longus tendons are normal. The tibialis posterior, flexor digitorum longus and flexor hallucis longus tendons are normal. Plantar fascia: Plantar aponeurosis is normal. Bones/other: Bone alignment is normal. Bone marrow signal is normal. No fracture or pathologic marrow replacing process. There is a small focus of susceptibility artifact centered in the soft tissues near the skin surface posteriorly 1.3 cm posterior inferior to the distal tip of the lateral malleolus and slightly posterior to the peroneus longus and brevis tendons Fluid: Physiologic amount fluid in the joint space. No abnormal fluid collections identified. IMPRESSION: 1. Nonspecific tiny focus of susceptibility artifact at or near the skin surface located slightly posterior inferior to the tip the lateral malleolus without evident correlate on the recent prior radiographs which is of indeterminate etiology or significance. Correlate with physical exam along the skin surface and for any prior history of penetrating trauma at this location. 2. Otherwise unremarkable MRI of the right ankle/hindfoot. Reviewed, dictated and finalized at location A. IMPRESSION: 1. Nonspecific tiny focus of susceptibility artifact at or near the skin surfac e located slightly posterior inferior to the tip the lateral malleolus without evident correlate on the recent prior radiographs which is of indeterminate noelle ology or significance. Correlate with physical exam along the skin surface and for any prior history of penetrating trauma at this location. 2. Otherwise unremarkable MRI of the right ankle/hindfoot.
--- OUTSIDE RECORDS SUMMARY | 2025-07-25 09:03 | XMS_ITS | Encounter Summary ---
Author Organization [facility] Address [address] [place] [address] Care Team Providers Care Supervisor Feed House Name Role Phone Milli Johnson DO Primary Care Provider [phone] Encounter Details Date Type Department Care Team (Late st Contact Info) Description 08/16/2006 Outpatient Historical [facility] Child and Adolescent Psychiatry [facility] [address] [place] [address] Shimon Curran, [facility] NO ADDRESS ON FILE Social History Tobacco Use Types Packs/Day Years Used Date Smoking Tobacco: Never Assessed Comments Unknown Sex and Gender Information Value Date Recorded Sex Assigned at Not on file Legal Sex Female 2:53 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
--- OUTSIDE RECORDS SUMMARY | 2025-07-25 09:03 | XMS_ITS | Encounter Summary ---
Author Organization [facility] Address 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
--- OUTSIDE RECORDS SUMMARY | 2025-07-25 09:04 | XMS_ITS | Encounter Summary ---
Author Organization [facility] Address [address] [place] [address] Care Team Providers Care Property Disposal Manager Name Role Phone Milli Johnson DO Primary Care Provider [phone] Encounter Details Date Type Department Care Team (Late st Contact Info) Description 10/30/2005 Emergency HIS EMERGENCY RO[facility] Ashish Hill MD [address] [place] [address] [place] [address] Er, Authorized P NO ADDRESS ON FILE IMPETIGO (Primary Dx) Social History Tobacco Use Types Packs/Day Years Used Date Smoking Tobacco: Never Assessed Comments Unknown Sex and Gender Information Value Date Recorded Sex Assigned at Not on file Legal 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
--- OUTSIDE RECORDS SUMMARY | 2025-07-25 09:04 | XMS_ITS | Encounter Summary ---
Author Organization [facility] Address [address] [place] [address] Care Team Providers Care Railroad Conductor Name Role Phone Milli Johnson DO Primary Care Provider [phone] Encounter Details Date Type Department Care Team (Late st Contact Info) Description 12/04/2007 Outpatient Historical [facility] Family Medicine Kandace Axel [address] [place] [address] [place] [address] [place] [address] Social History Tobacco Use Types Packs/Day Years Used Date Smoking Tobacco: Never Assessed Comments Unknown Sex and Gender Information Value Date Recorded Sex Assigned at Not on file Legal Sex Female 2:53 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
--- OUTSIDE RECORDS SUMMARY | 2025-07-25 09:04 | XMS_ITS | Clinical Summary ---
Author Organization [facility] Address [facility] [place] [address] Care Team Providers Care Underwriting Manager Name Role Phone None, Provider MD Primary [...] COVID-19 Vaccine (1 - 2023-2 5 season) 2025 RSV Immunization or 60+ Years (1 - [...] this topic Insurance [employer] Care Teams Underwriting Manager Relationship Specialty Start Date End Date None, Provider, PCP - General 08/30/21
--- OUTSIDE RECORDS SUMMARY | 2025-07-25 09:04 | XMS_ITS | Clinical Summary ---
Author Organization [facility] [place] Address [address] [place] [address] Care Team Providers Care Tractor Expert Name Role Phone Milli Johnson DO Primary Care Provider [phone] Allergies Active Allergy Reactions Criticality Noted Date [...] ory disorder of vagina 10/23/2007 01/08/2009 Routine or child health check 05/23/2007 12/15/2011 Need [...] on file Legal Sex Female 2:53 AM RADIO STATION ENGINEER Gender Identity Not on file Sexual Orientation Not on file Last Filed Vital Signs Vital Sign Reading Time Taken Comments Blood Pressure 118/84 11/10/2022 10:02 AM RADIO STATION ENGINEER Pulse 101 11/10/2022 10:02 AM RADIO STATION ENGINEER Temperature 36.6 C (97.9 F) 11/10/2022 10:02 AM RADIO STATION ENGINEER Respiratory Rate 18 02/02/2022 7:59 AM CDT Oxygen Saturation 99% 11/10/2022 10: 02 AM RADIO STATION ENGINEER Inhaled Oxygen Concentration - - Weight 59.3 kg (130 lb 12.8 oz) 023 10:02 AM RADIO STATION ENGINEER Height 165.1 cm (5' 5) 11/10/2022 10:0 2 AM RADIO STATION ENGINEER Body Mass Index 21.77 11/10/2022 10:02 AM RADIO STATION ENGINEER Plan of Treatment Health Maintenance Due Date [...] 11:02 PM CDT) LAST MENSTRUAL PERIOD 06/05/14 [facility] PAP INTERP Negative for intraepithelial lesion or malignancy. [facility] Comment: Performed by [facility], [address] [place] [address] Medical Coding Instructor Pap Comment This Pap test has been evaluated with computer assisted technology. [facility] ADEQUACY: Satisfactory for evaluation. Endocervical/trans formation zone component present. [facility] CLINICAL INFORMATION Information not provided [facility] SOURCE Information not provided [facility] PREV PAP: INFORMATION NOT PROVIDED [facility] CYTOTECHNOLOGI ST: BKA, CT(ASCP) [facility] PREV BX: INFORMATION NOT PROVIDED [facility] Endocervical 06/08/2014 11:0 2 PM CDT 06/08/2014 11:21 PM CDT Comment:ENDOCERVICAL Bertrand Fernandez MD PATHOLOGY/CYTOLOGY ORDERABLE S Final Result [facility] CLIA# [id number] [address] [place] [address] from Last 3 Months or Most Recently Relevant to Health Maintenance Insurance [facility] [id number] OPEN CHOICE PPO RX [employer] PLANS (INTERNAL) [facility] Internal Plans Advance Directives For more information, please contact: [phone] * Full Code (Latest Code Status on [...] 7:14 AM 04/13/2016 11:32 AM Care Teams Tractor Expert Relationship Specialty [place] [address] [facility] [address] [place] [address] PCP - General 07/12/06
--- OUTSIDE RECORDS SUMMARY | 2025-07-25 09:04 | XMS_ITS | Encounter Summary ---
Author Organization [facility] Address [address] [place] [address] Care Team Providers Care Premix Concrete Batcher Name Role Phone Milli Johnson DO Primary Care Provider [phone] Encounter Details Date Type Department Care Team (Latest Contact Info) Description 10/16/2008 Outpatient Historical [place] [address] [place] [address] Abdominal Pain, Generalized Social History Tobacco Use Types Packs/Day Years Used Date Smoking Tobacco: Never Alcohol Use Standard Drinks/Week Comments No 0 (1 standard drink = 0.6 oz pur e alcohol) Comments No Sex and Gender Information Value Date Recorded Sex Assigned at Not on file Legal Sex Female 2:53 AM SQUEEGEE TENDER Gender Identity Not on file Sexual Orientation Not on file documented as of this encounter Plan of Treatment Not on file documented as of this encounter Visit Diagnoses Diagnosis Abdominal pain, generalized documented in this encounter Care Teams Premix Concrete Batcher Relationship Specialty [place] [address] [place] [address] PCP - General 07/12/06 documented as of this encounter
--- OUTSIDE RECORDS SUMMARY | 2025-07-25 09:04 | XMS_ITS | Encounter Summary ---
Author Organization [facility] Address [address] [place] [address] Care Team Providers Care Certified Master Locksmith Name Role Phone Milli Johnson DO Primary Care Provider [phone] Encounter Details Date Type Department Care Team (Late st Contact Info) Description 05/14/1999 Outpatient Historical [facility] Ashish Rajput DO NO ADDRESS ON FILE Volume depletion (Primary Dx) Social History Tobacco Use Types Packs/Day Years Used Date Smoking Tobacco: Never Assessed Comments Unknown Sex and Gender Information Value Date Recorded Sex Assigned at Not on file Legal Sex Female 2:53 AM DIRECTOR OF PUBLIC HEALTH Gender Identity Not on file Sexual Orientation Not on file documented as of this encounter Plan of Treatment Not on file documented as of this encounter Visit Diagnoses Diagnosis Volume depletion- Primary documented in this encounter Care Teams Certified Master Locksmith Relationship Specialty [place] [address] [facility] [address] [place] [address] PCP - General 07/12/06 documented as of this encounter
--- OUTSIDE RECORDS SUMMARY | 2025-07-25 09:04 | XMS_ITS | Encounter Summary ---
Author Organization [facility] Address [address] [place] [address] Care Team Providers Care Pet Walker Name Role Phone Milli Johnson DO Primary Care Provider [phone] Encounter Details Date Type Department Care Team (Late st Contact Info) Description 09/23/2007 Orders Only [facility] Family Medicine [place] Reyna [address] [place] [address] [place] [address] [place] [address] Social History Tobacco Use Types Packs/Day Years Used Date Smoking Tobacco: Never Assessed Comments Unknown Sex and Gender Information Value Date Recorded Sex Assigned at Not on file Legal Sex Female 2:53 AM MEDICAL REIMBURSEMENT SPECIALIST Gender Identity Not on file Sexual Orientation Not on file documented as of this encounter Plan of Treatment Not on file documented as of this encounter Visit Diagnoses Not on filedocumented in this encounter Care Teams Pet Walker Relationship Specialty [place] [address] [place] [address] PCP - General 07/12/06 documented as of this encounter
--- OUTSIDE RECORDS SUMMARY | 2025-07-25 09:04 | XMS_ITS | Clinical Summary ---
Author Organization [facility] Address [address] [facility] [place] [address] Care Team Providers Care End User Support Specialist Name Role Phone Milli Johnson DO Primary Care Provider [phone] Source Comments [facility],non-owned Affiliates and Associated Physician Practices is amultiple site organization consisting of ambulatory clinics and hospital sitesin [place], [place], [place] and [place]. This disclosure is being madepursuant to the Care Everywhere program and may not contain all information available regarding this patient. Last updated 18.[facility] Allergies Active Allergy Reactions Criticality Noted Date [...] PM CDT Legal Sex Female 5:52 AM MAINSPRING BARREL ASSEMBLY CLEANER Gender Identity Female 07/12/2022 4:08 PM CDT Sexual Orientation Straight 07/12/2022 4: 08 PM CDT Last Filed Vital Signs Vital Sign Reading Time Taken Comments Blood Pressure 127/71 11/30/2015 9:55 AM MAINSPRING BARREL ASSEMBLY CLEANER Pulse 87 11/30/2015 9:55 AM MAINSPRING BARREL ASSEMBLY CLEANER Temperature 36.9 C (98.5 F) 11/30/2015 9:55 AM MAINSPRING BARREL ASSEMBLY CLEANER Respiratory Rate 18 11/30/2015 9:55 AM MAINSPRING BARREL ASSEMBLY CLEANER Oxygen Saturation 100% 11/30/2015 9:55 AM MAINSPRING BARREL ASSEMBLY CLEANER Inhaled Oxygen Concentration - - Weight 66.6 kg (146 lb 12.8 oz) 11/30/2015 9:55 AM MAINSPRING BARREL ASSEMBLY CLEANER Height 162.6 cm (5' 4) 11/30/2015 9:55 AM MAINSPRING BARREL ASSEMBLY CLEANER Body Mass Index 25.2 11/30/2015 9:55 AM MAINSPRING BARREL ASSEMBLY CLEANER Plan of Treatment Health Maintenance Due Date Last Done Comments HIV SCREENING 2006 DTAP/TDAP/TD VACCINES (1 - Tdap) 2010 HEPATITIS B VACCINE (1 of 3 - 19+ 3-dose series) 2010 HPV VACCINE (1 - 3-dose SCDM series) 2018 DEPRESSION SCREENING 10/29/2024 COVID-19 VACCINE (1 - 2023-2 5 season) 2025 INFLUENZA VACCINE (#1) 2025 ZOSTER VACCINE (1 [...] patient's age to complete this topic Insurance [facility] Care Teams End User Support Specialist Relationship Specialty [place] [address] [facility] [address] [place] [address] PCP - General 02/17/12
--- OUTSIDE RECORDS SUMMARY | 2025-07-25 09:04 | XMS_ITS | Encounter Summary ---
Author Organization [facility] Address [address] [place] [address] Care Team Providers Care Network Operations Analyst Name Role Phone Milli Johnson DO Primary Care Provider Encounter Details Date Type Department Care Team (Late st Contact Info) Description 05/13/2007 Orders Only [facility] Family [facility] [place] [address] [facility] [address] [place] [address] [place] [address] [place] [address] Social History Tobacco Use Types Packs/Day Years Used Date Smoking Tobacco: Never Assessed Comments Unknown Sex and Gender Information Value Date Recorded Sex Assigned at Not on file Legal Sex Female 2:53 AM STRUCTURAL ENGINEER Gender Identity Not on file Sexual [...] on filedocumented in this encounter Care Teams Network Operations Analyst Relationship Specialty [place] [address] [facility] [address] [place] [address] PCP - General 07/12/06 documented as of this encounter
--- OUTSIDE RECORDS SUMMARY | 2025-07-25 09:04 | XMS_ITS | Clinical Summary ---
Author Organization [facility] [address] [facility] [place] [address] Care Team Providers Care Hemodialysis Charge Nurse Name Role Phone Milli Johnson DO Primary Care Provider [phone] Lata Nelson DO Unavailable [phone] Allergies Active Allergy Reactions Criticality Noted Date Comments Adhesive Rash Medium 09/14/2013 control patch of unknown name. 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 Gender Identity Female 08/25/2021 11:08 AM CDT [...] al N Livin g 5 8 Maegan lobo Senci boy, D Complications:Positive GBS t est,Meconium staining Delivery Location:[facility] Comments:No observed a nomalies 2021 Term 37w 2d 4h 21m 3h 11m/1h 04m/0h 06m 2.53 kg (5 lb 9.2 oz) M Vag-S pont Livin g 7 8 WIESEM AN,BOY 1STEPH MAGDALENA Lata Senci boy DO Complications: Intolera nce Delivery Location:[facility] (ST LABOR ) Last Filed Vital Signs Vital [...] Procedure Name Priority Date/Time Associated Diagnosis Comments THINPREP IMAGING PAP AND HPV MRNA E6/E7 REFLEX HPV 16,18/45 Routine 04/06/2025 4:00 PM CDT Routine gynecological examination HEPATITIS C ANTIBODY Routine 08/23/2021 11:40 AM CDT Encounter for supervision of other normal in first trimester from Last 3 Months or Most Recently Relevant to Health Maintenance Results * ThinPrep(R) Imaging Pap and HPV mRNA E6/E7 Reflex HPV 16,18/45 (04/06/2025 4:00 PM CDT) CLINICAL INFORMATION: [facility] Comment:None given LMP [facility] Comment:NONE GIVEN Previous Pap [facility] Comment:NONE GIVEN Prev. Bx [facility] Comment:NONE GIVEN SOURCE: [facility] Comment:None given Pap, specimen adequacy [facility] Comment: Satisfactory for evaluation. Endocervical/transformation zone component present. Age and/or menstrual status not provided HPV interp [facility] Comment: Cytology Results: Negative for intraepithelial lesion or malignancy. COMMENTS [facility] Comment: This Pap test has been evaluated with computer assisted technology. Rehab Physician [facility] Comment: ABC, CT(ASCP) CT screening location: [place] [address] [place], [place] [address] Comment [facility] Comment: EXPLANATORY NOTE: The Pap is [...] High Risk E6/E7 Not Detected Not Detected [facility] Comment: Methodology: Accounting Machine Mechanic-Mediated Amplification This assay detects E6/E7 viral messenger RNA (mRNA) from 14 high-risk HPV types (16,18,31,33,35,39,45,51,52,56,58,59,66,68). Cervical sources are required for HPV testing. If a vaginal source from a patient who has had a total hysterectomy with removal of cervix was submitted, please contact the testing laboratory for alternative testing options. For additional information, please refer to [email or web address]/RMQ334n4 (This link if provided for information/ educational purposes only.) Swab 04/06/2025 4:00 PM CDT 04/07/2025 7:44 PM CDT us Lata Nelson DO LAB CYTOLOGY ORDERABLES Final Result Performing Organization Address City/[facility] de Phone Number BREANNA [facility] [address] [place] [address] [address] * Hepatitis C antibody (08/23/2021 11:40 AM CDT) Hep C Ab NON-REACTI VE NON-REACT HASEEB [facility] SIGNAL TO CUT-OFF 0.01 <1.00 [facility] Comment: HCV antibody was non-reactive. There is no laboratory evidence of HCV infection. In most cases, no further action is required. However, if recent HCV exposure is suspected, a test for HCV RNA (test code 04446) is suggested. For additional information please refer to [email or web address]/[email or web address] (This link is being provided for informational/ educational purposes only.) Blood specimen (specimen) 08/23/2021 11:40 AM CDT 08/23/2021 11:42 AM CDT us Kary Pena NP LAB MICROBIOLOGY - GENERAL OR DERABLES Final Result Performing Organization Address City/[facility] Co de Phone Number BREANNA [facility] [address] [facility] [place] [address] from Last 3 Months or Most Recently Relevant to Health Maintenance Insurance [facility] CMR Care Teams Hemodialysis Charge Nurse Relationship Specialty [place] [address] [facility] [address] [place] [address] PCP - General Family Medicine 05/24/21 [place] [address] [place] [address] Consulting Physician Obstetrics and Gynecology 05/24/21
--- OUTSIDE RECORDS SUMMARY | 2025-07-25 09:04 | XMS_ITS | Encounter Summary ---
Author Organization [facility] Address 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
--- OUTSIDE RECORDS SUMMARY | 2025-07-25 09:04 | XMS_ITS | Encounter Summary ---
Author Organization [facility] Address [address] [place] [address] Care Team Providers Care Director Of Collections Name Role Phone Milli Johnson DO Primary Care Provider [phone] Encounter Details Date Type Department Care Team (Late st Contact Info) Description 05/13/2007 Outpatient Historical [facility] Family Medicine [place] [address] [place] [address] [place] [address] [place] [address] Social History Tobacco Use Types Packs/Day Years Used Date Smoking Tobacco: Never Assessed Comments Unknown Sex and Gender Information Value Date Recorded Sex Assigned at Not on file 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
--- OUTSIDE RECORDS SUMMARY | 2025-07-25 09:04 | XMS_ITS | Encounter Summary ---
Author Organization [facility] Address [address] [place] [address] Care Team Providers Care Administrative Specialist Name Role Phone Milli Johnson DO Primary Care Provider [phone] Encounter Details Date Type Department Care Team (Late st Contact Info) Description 07/12/2006 Outpatient Historical [facility] Family Medicine [place] [address] [place] [address] [place] [address] [place] [address] Social History Tobacco Use Types Packs/Day Years Used Date Smoking Tobacco: Never Assessed Comments Unknown Sex and Gender Information Value Date Recorded Sex Assigned at Not on file Legal 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
--- OUTSIDE RECORDS SUMMARY | 2025-07-25 09:04 | XMS_ITS | Encounter Summary ---
Author Organization [facility] Address [address] [place] [address] Care Team Providers Care Cpr Ambulance Driver Name Role Phone Milli Johnson DO Primary Care Provider [phone] Encounter Details Date Type Department Care Team (Late st Contact Info) Description 12/04/[address] 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 [address] [place] [address] PCP - General 07/12/06 documented as of this encounter
--- OUTSIDE RECORDS SUMMARY | 2025-07-25 09:04 | XMS_ITS | Encounter Summary ---
Author Organization [facility] Address [address] [place] [address] Care Team Providers Care Manager Recruitment Name Role Phone Milli Johnson DO Primary Care Provider [phone] Encounter Details Date Type Department Care Team (Late st Contact Info) Description 07/24/2006 Outpatient Historical [facility] Family Medicine [place]and[place] Reyn[address] [place] [address] [place] 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
--- OUTSIDE RECORDS SUMMARY | 2025-07-25 09:04 | XMS_ITS | Encounter Summary ---
Author Organization [facility] Address [address] [place] [address] Care Team Providers Care Health Safety Specialist Name Role Phone Milli Johnson DO Primary Care Provider Encounter Details Date Type Department Care Team (Late st Contact Info) Description 10/23/2007 Outpatient Historical [facility] Family Medicine [place] [address] [place] [address] [place] [address] [place] [address] Social History Tobacco Use Types Packs/Day Years Used Date Smoking Tobacco: Never Assessed Comments Unknown Sex and Gender Information Value Date Recorded Sex Assigned at Not on file 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
--- OUTSIDE RECORDS SUMMARY | 2025-07-25 09:04 | XMS_ITS | Encounter Summary ---
Author Organization [facility] Address [address] [place] [address] Care Team Providers Care Leaf Sticker Name Role Phone Milli Johnson DO Primary Care Provider [phone] Encounter Details Date Type Department Care Team (Late st Contact Info) Description 09/06/2006 Outpatient [facility] Family Therapy [address] [place] [address] Evelina Aguirre, RN Social History Tobacco Use Types Packs/Day Years Used Date Smoking Tobacco: Never Assessed Comments Unknown Sex and Gender Information Value Date Recorded Sex Assigned at Not on file Legal Sex Female 2:53 AM YOUTH AGENT Gender Identity Not on file Sexual Orientation Not on file documented as of this encounter Plan of Treatment Not on file documented as of this encounter Visit Diagnoses Not on filedocumented in this encounter Care Teams Leaf Sticker Relationship Specialty [place] [address] [facility] [address] [place] [address] PCP - General 07/12/06 documented as of this encounter
--- OUTSIDE RECORDS SUMMARY | 2025-07-25 09:04 | XMS_ITS | Encounter Summary ---
Author Organization [facility] Address 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
--- OUTSIDE RECORDS SUMMARY | 2025-07-25 09:04 | XMS_ITS | Encounter Summary ---
Author Organization [facility] Address 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
--- OUTSIDE RECORDS SUMMARY | 2025-07-25 09:04 | XMS_ITS | Encounter Summary ---
Author Organization [facility] Address 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
--- OUTSIDE RECORDS SUMMARY | 2025-07-25 09:04 | XMS_ITS | Encounter Summary ---
Author Organization [facility] Address [address] [place] [address] Care Team Providers Care Test Specialist Name Role Phone Milli Johnson DO Primary Care Provider [phone] Encounter Details Date Type Department Care Team (Late st Contact Info) Description 05/23/2007 Outpatient Historical [facility] Family Medicine [place] [address] [facility] [address] [place] [address] Mariah Douglas MD NO ADDRESS ON FILE Social History Tobacco Use Types Packs/Day Years Used Date Smoking Tobacco: Never Assessed Comments Unknown Sex and Gender Information Value Date Recorded Sex Assigned at Not on file Legal 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
--- OUTSIDE RECORDS SUMMARY | 2025-07-25 09:04 | XMS_ITS | Encounter Summary ---
Author Organization [facility] Address 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
--- OUTSIDE RECORDS SUMMARY | 2025-07-25 09:04 | XMS_ITS | Encounter Summary ---
Author Organization [facility] Address [address] [place] [address] Care Team Providers Care County Home Demonstrator Name Role Phone Milli Johnson DO Primary Care Provider Encounter Details Date Type Department Care Team (Late st Contact Info) Description 12/04/2007 Outpatient Historical [facility] Family Medicine [place] [address] [place] [address] Narcisa Veloz MD [address] [place] [id number] Social History Tobacco Use Types Packs/Day Years Used Date Smoking Tobacco: Never Assessed Comments Unknown Sex and Gender Information Value Date Recorded Sex Assigned at Not on file Legal Sex Female 2:53 AM CAR RENTAL AGENT Gender Identity Not on file Sexual Orientation Not on file documented as of this encounter Plan of Treatment Not on file documented as of this encounter Visit Diagnoses Not on filedocumented in this encounter Care Teams County Home Demonstrator Relationship Specialty [place] [address] [place] [address] PCP - General 07/12/06 documented as of this encounter
--- OUTSIDE RECORDS SUMMARY | 2025-07-25 09:04 | XMS_ITS | Encounter Summary ---
Author Organization [facility] Address [address] [place] [address] Care Team Providers Care Coach Name Role Phone Milli Johnson DO Primary Care Provider [phone] Encounter Details Date Type Department Care Team (Late st Contact Info) Description 01/31/2007 Outpatient Historical [facility] Family Medicine [place] [address] [place] [address] [place] [address] [place] [address] Social History Tobacco Use Types Packs/Day Years Used Date Smoking Tobacco: Never Assessed Comments Unknown Sex and Gender Information Value Date Recorded Sex Assigned at Not on file 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
--- OUTSIDE RECORDS SUMMARY | 2025-07-25 09:04 | XMS_ITS | Encounter Summary ---
Author Organization [facility] Address [address] [place] [address] Care Team Providers Care Bung Remover Name Role Phone Milli Johnson DO Primary Care Provider [phone] Encounter Details Date Type Department Care Team (Late st Contact Info) Description 05/23/2007 Outpatient Historical [facility] Family Medicine [place] [place] [address] Mariah Douglas MD NO ADDRESS ON FILE Social History Tobacco Use Types Packs/Day Years Used Date Smoking Tobacco: Never Assessed Comments Unknown Sex and Gender Information Value Date Recorded Sex Assigned at Not on file Legal Sex Female 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
--- OUTSIDE RECORDS SUMMARY | 2025-07-25 09:04 | XMS_ITS | Encounter Summary ---
Author Organization [facility] Address [address] [place] [address] Care Team Providers Care Waxer Floor Name Role Phone Milli Johnson DO Primary Care Provider [phone] Encounter Details Date Type Department Care Team (Late st Contact Info) Description 10/23/2007 Outpatient Historical [facility] [place] [address] [place] [address] [place] [address] [place] [address] Social History Tobacco Use Types Packs/Day Years Used Date Smoking Tobacco: Never Assessed Comments Unknown Sex and Gender Information Value Date Recorded Sex Assigned at Not on file 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
== END 2025-07-25 09:02 | disposition home or self-care (01) ==
PROVIDERS: PCP Internal Medicine; Visit Provider Internal Medicine
DX: M25.571 Pain in right ankle and joints of right foot (principal)
CPT/HCPCS: 73721